=== PATIENT | male | born 1950 | race Caucasian/White ===

== ENCOUNTER 2019-06-24 13:18 | Inpatient (IN) ==
[2019-06-24] MEDS ORDERED: 0.9 % Sodium Chloride 1,000 ML IVC ONE (14:00)
[2019-06-24] MEDS ORDERED: *HR* Promethazine 25 MG/ML VIAL IVP ONE (14:08)
[2019-06-24 14:56] LABS: Eosinophils # 0.1 K/mcL (0.0-0.6); Eosinophils % 1.6 %; Hematocrit 43.1 % (37.5-50.1); Hemoglobin 14.8 g/dL (12.9-16.9); Immature Granulocytes % 0.3 % (0-4); Lymphocytes # 0.3 K/mcL (0.6-4.6); Lymphocytes % 8.4 %; Mean Corpuscular HGB Conc 34.3 g/dL (31.6-35.5); Mean Corpuscular Hemoglobin 30.1 pg (28.0-33.3); Mean Corpuscular Volume 87.8 fL (83.0-100.0); Mean Platelet Volume 10.6 fL (9.4-12.4); Neutrophils # 2.8 K/mcL (1.6-8.9); Platelet Count 107 K/mcL (140-400); Red Blood Count 4.91 M/mcL (4.19-5.50); Segmented Neutrophils % 88.7 %; White Blood Count 3.1 K/mcL (4.3-11.1)
[2019-06-24 15:25] LABS: Alanine Aminotransferase 16 Units/L (7-52); Albumin 3.8 g/dL (3.5-5.7); Albumin/Globulin Ratio 1.5 (1.1-2.2); Alkaline Phosphatase 100 Units/L (34-104); Aspartate Amino Transferase 15 Units/L (13-39); BUN/Creatinine Ratio 21 (6-26); Bilirubin,Total 1.3 mg/dL (0.3-1.0); Blood Urea Nitrogen 24 mg/dL (8-23); Calcium 8.9 mg/dL (8.6-10.3); Carbon Dioxide 27 mEq/L (23-29); Chloride 94 mEq/L (98-107); Globulin 2.5 g/dL (2.4-3.5); Glucose 94 mg/dL (70-105); Lactate Dehydrogenase 226 Units/L (140-271); Magnesium 1.6 mg/dL (1.6-2.6); Osmolality,Calculated 274 (280-300); Phosphorous 3.1 mg/dL (2.7-4.5); Potassium 4.3 mEq/L (3.5-5.1); Sodium 130 mEq/L (136-145); Total Protein 6.3 g/dL (6.4-8.9); Troponin I < 0.03 ng/mL (< 0.04); Uric Acid 6.6 mg/dL (2.3-7.6); eGFR For African Americans > 60 (> 60); eGFR For Non-African Americans > 60 (> 60)
[2019-06-24] MEDS ORDERED: Ondansetron 4 MG/2 ML VIAL IVP STA (16:55)
[2019-06-24] MEDS ORDERED: Metoclopramide 10 MG/2 ML VIAL IVP STA (16:56)
[2019-06-24] MEDS ORDERED: 0.9 % Sodium Chloride 1,000 ML IVC STA (16:57)
[2019-06-24] MEDS ORDERED: *HR* HYDROmorphone 2 MG TABLET PO STA (18:43)
[2019-06-24] MEDS ORDERED: Piperacillin/Tazobactam 3.375 GM in 0.9 % Sodium Chloride Mini Bag 100 ML IVPB ONE (19:48)
[2019-06-24] MEDS ORDERED: Naloxone 0.4 MG/ML INJ IVP PRN (19:51)
[2019-06-24] MEDS ORDERED: Ipratropium/Albuterol Neb 3 ML IH PRN (19:59)
[2019-06-24] MEDS ORDERED: 0.9 % Sodium Chloride 1,000 ML IVC SCH (20:00)
[2019-06-24 21:27] LABS: Bilirubin,Urine Negative (Negative); Blood,Urine Negative (Negative); Clarity,Urine Clear (Clear); Color,Urine Yellow (Yellow); Glucose,Urine (UA) Normal (Normal); Ketones,Urine Negative (Negative); Leukocyte Esterase,Urine Negative (Negative); Nitrite,Urine Negative (Negative); Protein,Urine Trace mg/dL (Neg-Trace); Urobilinogen,Urine Normal (Normal)
[2019-06-24] MEDS: Benzonatate 100 MG CAPSULE PO SCH (22:06)
[2019-06-24] MEDS: *HR* Heparin 5,000 UNIT/ML VIAL SQ SCH (22:06)
[2019-06-25] MEDS: *HR* Heparin 5,000 UNIT/ML VIAL SQ SCH (05:02)
[2019-06-25 08:32] LABS: INR 1.3; Prothrombin Time 15.2 Seconds (9.4-12.1)
[2019-06-25 08:34] LABS: Activated Partial Thrombo Time 27.6 Seconds (26.0-36.0)
[2019-06-25 08:39] LABS: Eosinophils % 1.8 %; Monocytes % 1.4 %; Red Cell Distribution Width 13.1 % (11.5-14.5)
[2019-06-25 08:41] LABS: Hematocrit 35.6 % (37.5-50.1); Hemoglobin 12.3 g/dL (12.9-16.9); Immature Granulocytes % 0.9 % (0-4); Lymphocytes # 0.3 K/mcL (0.6-4.6); Lymphocytes % 13.6 %; Mean Corpuscular HGB Conc 34.6 g/dL (31.6-35.5); Mean Corpuscular Hemoglobin 30.1 pg (28.0-33.3); Mean Platelet Volume 10.7 fL (9.4-12.4); Neutrophils # 1.8 K/mcL (1.6-8.9); Red Blood Count 4.09 M/mcL (4.19-5.50); Segmented Neutrophils % 82.3 %; White Blood Count 2.2 K/mcL (4.3-11.1)
[2019-06-25] MEDS: Benzonatate 100 MG CAPSULE PO SCH ×3 (08:51→20:05)
[2019-06-25] MEDS: Folic Acid 1 MG TABLET PO SCH (08:52)
[2019-06-25] MEDS: Ondansetron 4 MG/2 ML VIAL IVP PRN ×2 (08:52→20:09)
[2019-06-25 08:57] LABS: Platelet Count 84 K/mcL (140-400)
[2019-06-25 09:00] LABS: Platelet Estimate Decreased (Normal)
[2019-06-25 09:01] LABS: Alanine Aminotransferase 11 Units/L (7-52); Albumin 3.1 g/dL (3.5-5.7); Albumin/Globulin Ratio 1.7 (1.1-2.2); Alkaline Phosphatase 81 Units/L (34-104); Aspartate Amino Transferase 14 Units/L (13-39); Bilirubin,Total 0.9 mg/dL (0.3-1.0); Blood Urea Nitrogen 18 mg/dL (8-23); Carbon Dioxide 24 mEq/L (23-29); Chloride 100 mEq/L (98-107); Globulin 1.8 g/dL (2.4-3.5); Glucose 90 mg/dL (70-105); Osmolality,Calculated 275 (280-300); Potassium 4.4 mEq/L (3.5-5.1); Sodium 132 mEq/L (136-145); Total Protein 4.9 g/dL (6.4-8.9)
[2019-06-25 09:33] LABS: BUN/Creatinine Ratio 19 (6-26); eGFR For African Americans > 60 (> 60); eGFR For Non-African Americans > 60 (> 60)
[2019-06-25] MEDS ORDERED: Piperacillin/Tazobactam 3.375 GM in 0.9 % Sodium Chloride Mini Bag 100 ML IVPB SCH (12:00)
[2019-06-25] MEDS: 0.9 % Sodium Chloride 1,000 ML IVC SCH ×2 (12:10→23:32)
[2019-06-25] MEDS: Morphine Sulfate ER (12 HR) 15 MG TABLET.ER PO SCH (20:05)
[2019-06-25] MEDS: Piperacillin/Tazobactam 3.375 GM in 0.9 % Sodium Chloride Mini Bag 100 ML IVPB SCH (20:06)
[2019-06-26] MEDS: Piperacillin/Tazobactam 3.375 GM in 0.9 % Sodium Chloride Mini Bag 100 ML IVPB SCH ×3 (03:16→20:18)
[2019-06-26 05:27] LABS: Basophils % 0.7 %; Mean Platelet Volume 10.6 fL (9.4-12.4)
[2019-06-26 05:28] LABS: Eosinophils % 2.2 %; Hematocrit 34.3 % (37.5-50.1); Hemoglobin 11.7 g/dL (12.9-16.9); Immature Granulocytes % 0.7 % (0-4); Lymphocytes # 0.3 K/mcL (0.6-4.6); Lymphocytes % 21.9 %; Mean Corpuscular HGB Conc 34.1 g/dL (31.6-35.5); Mean Corpuscular Hemoglobin 30.2 pg (28.0-33.3); Mean Corpuscular Volume 88.4 fL (83.0-100.0); Monocytes # 0.1 K/mcL (0.0-1.3); Monocytes % 4.4 %; Platelet Count 77 K/mcL (140-400); Red Blood Count 3.88 M/mcL (4.19-5.50); Red Cell Distribution Width 13.1 % (11.5-14.5); Segmented Neutrophils % 70.1 %; White Blood Count 1.4 K/mcL (4.3-11.1)
[2019-06-26 05:52] LABS: BUN/Creatinine Ratio 14 (6-26); Blood Urea Nitrogen 14 mg/dL (8-23); Calcium 8.1 mg/dL (8.6-10.3); Carbon Dioxide 24 mEq/L (23-29); Chloride 99 mEq/L (98-107); Glucose 95 mg/dL (70-105); Osmolality,Calculated 272 (280-300); Potassium 4.5 mEq/L (3.5-5.1); Sodium 131 mEq/L (136-145); eGFR For African Americans > 60 (> 60); eGFR For Non-African Americans > 60 (> 60)
[2019-06-26] MEDS: Folic Acid 1 MG TABLET PO SCH (08:13)
[2019-06-26] MEDS: Fluticasone Propionate Nasal 50 MCG/SPRAY BOTTLE NS SCH (08:13)
[2019-06-26] MEDS: Benzonatate 100 MG CAPSULE PO SCH ×3 (08:13→20:18)
[2019-06-26] MEDS: Loratadine 10 MG TABLET PO SCH (08:13)
[2019-06-26] MEDS: Morphine Sulfate ER (12 HR) 15 MG TABLET.ER PO SCH ×2 (08:13→20:18)
[2019-06-26] MEDS: 0.9 % Sodium Chloride 1,000 ML IVC SCH (14:05)
[2019-06-26] MEDS: Ondansetron 4 MG/2 ML VIAL IVP PRN (15:36)
[2019-06-26] MEDS: Ondansetron 4 MG/2 ML VIAL IVP SCH (16:31)
[2019-06-27] MEDS: Ondansetron 4 MG/2 ML VIAL IVP SCH ×2 (00:11→08:42)
[2019-06-27] MEDS: 0.9 % Sodium Chloride 1,000 ML IVC SCH (00:12)
[2019-06-27] MEDS: Piperacillin/Tazobactam 3.375 GM in 0.9 % Sodium Chloride Mini Bag 100 ML IVPB SCH ×2 (04:48→13:40)
[2019-06-27 05:25] LABS: Basophils % 0.8 %
[2019-06-27 05:27] LABS: Eosinophils # 0.1 K/mcL (0.0-0.6); Hematocrit 35.5 % (37.5-50.1); Hemoglobin 12.3 g/dL (12.9-16.9); Immature Granulocytes % 0.8 % (0-4); Lymphocytes # 0.3 K/mcL (0.6-4.6); Lymphocytes % 23.1 %; Mean Corpuscular HGB Conc 34.6 g/dL (31.6-35.5); Mean Corpuscular Hemoglobin 30.1 pg (28.0-33.3); Mean Corpuscular Volume 86.8 fL (83.0-100.0); Mean Platelet Volume 10.7 fL (9.4-12.4); Monocytes # 0.1 K/mcL (0.0-1.3); Monocytes % 8.3 %; Red Blood Count 4.09 M/mcL (4.19-5.50); Red Cell Distribution Width 13.1 % (11.5-14.5); White Blood Count 1.2 K/mcL (4.3-11.1)
[2019-06-27 05:29] LABS: Neutrophils # 0.7 K/mcL (1.6-8.9); Platelet Count 67 K/mcL (140-400)
[2019-06-27 05:41] LABS: BUN/Creatinine Ratio 14 (6-26); Blood Urea Nitrogen 14 mg/dL (8-23); Calcium 8.2 mg/dL (8.6-10.3); Carbon Dioxide 23 mEq/L (23-29); Chloride 99 mEq/L (98-107); Glucose 93 mg/dL (70-105); Osmolality,Calculated 272 (280-300); Potassium 4.3 mEq/L (3.5-5.1); Sodium 131 mEq/L (136-145); eGFR For African Americans > 60 (> 60); eGFR For Non-African Americans > 60 (> 60)
[2019-06-27] MEDS: Loratadine 10 MG TABLET PO SCH (08:42)
[2019-06-27] MEDS: Morphine Sulfate ER (12 HR) 15 MG TABLET.ER PO SCH (08:42)
[2019-06-27] MEDS: Benzonatate 100 MG CAPSULE PO SCH ×2 (08:42→16:13)
[2019-06-27] MEDS: Folic Acid 1 MG TABLET PO SCH (08:42)
[2019-06-27] MEDS: Fluticasone Propionate Nasal 50 MCG/SPRAY BOTTLE NS SCH (08:43)
[2019-06-27] MEDS ORDERED: Ondansetron ODT 4 MG TAB.RAPDIS SL PRN (09:17)
[2019-06-27 14:51] LABS: Hematocrit 34.8 % (37.5-50.1); Immature Granulocytes % 0.9 % (0-4); Red Cell Distribution Width 13.1 % (11.5-14.5)
[2019-06-27 14:52] LABS: Basophils % 0.9 %; Eosinophils # 0.1 K/mcL (0.0-0.6); Eosinophils % 4.4 %; Hemoglobin 11.7 g/dL (12.9-16.9); Lymphocytes # 0.3 K/mcL (0.6-4.6); Lymphocytes % 25.7 %; Mean Corpuscular HGB Conc 33.6 g/dL (31.6-35.5); Mean Corpuscular Hemoglobin 29.8 pg (28.0-33.3); Mean Corpuscular Volume 88.8 fL (83.0-100.0); Mean Platelet Volume 10.3 fL (9.4-12.4); Monocytes # 0.1 K/mcL (0.0-1.3); Monocytes % 8.8 %; Neutrophils # 0.7 K/mcL (1.6-8.9); Red Blood Count 3.92 M/mcL (4.19-5.50); Segmented Neutrophils % 59.3 %; White Blood Count 1.1 K/mcL (4.3-11.1)
[2019-06-27 15:14] LABS: Platelet Count 60 K/mcL (140-400); Platelet Estimate Decreased (Normal)
[2019-06-27 15:51] VITALS: BP 102/65
[2019-06-27] MEDS ORDERED: Aminoglycoside Consult 1 EACH MC ONE (18:07)
== END 2019-06-27 18:08 | disposition home or self-care (01) | DRG 391 ==
LOC: 3BNU 13:18 → EMEROOARM 13:18 → 3BNU 20:55
PROVIDERS: ADMIT Internal Medicine; ATTEND Internal Medicine

== ENCOUNTER 2019-08-13 01:04 | Observation (INO) ==
[2019-08-13] MEDS ORDERED: Albuterol 2.5 MG/3 ML NEBULIZER IH ONE (01:49)
[2019-08-13] MEDS ORDERED: Ipratropium/Albuterol Neb 3 ML IH ONE (01:49)
[2019-08-13] MEDS ORDERED: Isovue-370 500 ML BOTTLE IVP ONE (01:49)
[2019-08-13 02:20] LABS: Hematocrit 24.5 % (37.5-50.1); Hemoglobin 8.2 g/dL (12.9-16.9); Mean Corpuscular HGB Conc 33.5 g/dL (31.6-35.5); Mean Corpuscular Hemoglobin 30.3 pg (28.0-33.3); Mean Corpuscular Volume 90.4 fL (83.0-100.0); Mean Platelet Volume 10.5 fL (9.4-12.4); Platelet Count 198 K/mcL (140-400); Red Blood Count 2.71 M/mcL (4.19-5.50); Red Cell Distribution Width 17.7 % (11.5-14.5); White Blood Count 7.6 K/mcL (4.3-11.1)
[2019-08-13 02:27] LABS: INR 1.1
[2019-08-13 02:29] LABS: Activated Partial Thrombo Time 29.5 Seconds (26.0-36.0)
[2019-08-13 02:40] LABS: Lymphocytes # 0.6 K/mcL (0.6-4.6)
[2019-08-13 02:41] LABS: Anisocytosis 1+ (Not Present); Platelet Estimate Normal (Normal)
[2019-08-13 02:42] LABS: Alanine Aminotransferase 20 Units/L (7-52); Albumin 3.8 g/dL (3.5-5.7); Albumin/Globulin Ratio 1.5 (1.1-2.2); Alkaline Phosphatase 136 Units/L (34-104); Aspartate Amino Transferase 17 Units/L (13-39); BUN/Creatinine Ratio 31 (6-26); Bilirubin,Direct 0.2 mg/dL (0.0-0.2); Bilirubin,Indirect 0.5 mg/dL (0.0-1.0); Bilirubin,Total 0.7 mg/dL (0.3-1.0); Blood Urea Nitrogen 26 mg/dL (8-23); Calcium 8.7 mg/dL (8.6-10.3); Carbon Dioxide 22 mEq/L (23-29); Chloride 98 mEq/L (98-107); Globulin 2.5 g/dL (2.4-3.5); Glucose 86 mg/dL (70-105); Osmolality,Calculated 276 (280-300); Potassium 4.9 mEq/L (3.5-5.1); Sodium 131 mEq/L (136-145); Total Protein 6.3 g/dL (6.4-8.9); Troponin I < 0.03 ng/mL (< 0.04); eGFR For African Americans > 60 (> 60); eGFR For Non-African Americans > 60 (> 60)
[2019-08-13] MEDS ORDERED: Ondansetron 4 MG/2 ML VIAL IVP ONE ×2 (03:46→08:33)
[2019-08-13] MEDS ORDERED: Morphine Sulfate 2 MG/ML SYRINGE IVP ONE (04:03)
[2019-08-13] MEDS ORDERED: 0.9 % Sodium Chloride 1,000 ML IV ONE (04:20)
[2019-08-13] MEDS ORDERED: Ondansetron 4 MG/2 ML VIAL IVP PRN (05:02)
[2019-08-13] MEDS ORDERED: Naloxone 0.4 MG/ML INJ IVP PRN (05:02)
[2019-08-13] MEDS ORDERED: 0.9 % Sodium Chloride 1,000 ML IVC SCH (05:15)
[2019-08-13 05:48] LABS: Bilirubin,Urine Negative (Negative); Blood,Urine Negative (Negative); Clarity,Urine Clear (Clear); Color,Urine Yellow (Yellow); Glucose,Urine (UA) Normal (Normal); Ketones,Urine Negative (Negative); Leukocyte Esterase,Urine Negative (Negative); Nitrite,Urine Negative (Negative); PH,Urine 7.5 pH Units (5.0-8.0); Protein,Urine 30 mg/dL (Neg-Trace); Specific Gravity,Urine 1.019 (1.010-1.025); Urobilinogen,Urine Normal (Normal)
[2019-08-13 05:50] LABS: Bacteria,Urine None Seen per hpf (None-Few); Hyaline Casts,Urine None Seen per lpf (None-Few); RBC,Urine 0-3 per hpf (0-3); Squamous Epithelial Cell,Urine Many per lpf (None-Few)
[2019-08-13] MEDS ORDERED: *HR* OxyCODONE/APAP 5/325 TABLET PO PRN (06:10)
[2019-08-13] MEDS ORDERED: Fluticasone Propionate Nasal 50 MCG/SPRAY BOTTLE NS PRN (06:10)
[2019-08-13] MEDS ORDERED: Aspirin 325 MG TABLET PO ONE (06:22)
[2019-08-13 06:48] LABS: % Iron Saturation 95 % (20-55); Iron 271 mcg/dL (65-175); Transferrin 204 mg/dL (203-362)
[2019-08-13 07:06] LABS: Ferritin 848 ng/mL (20-250)
[2019-08-13] MEDS ORDERED: dexAMETHasone 4 MG TABLET PO PRN (09:00)
[2019-08-13] MEDS: Simethicone 80 MG TAB.CHEW PO SCH ×4 (09:45→21:01)
[2019-08-13] MEDS: Morphine Sulfate ER (12 HR) 15 MG TABLET.ER PO SCH ×2 (09:46→21:02)
[2019-08-13] MEDS: Folic Acid 1 MG TABLET PO SCH (09:46)
[2019-08-13] MEDS: Benzonatate 100 MG CAPSULE PO SCH ×3 (09:46→21:01)
[2019-08-13] MEDS ORDERED: Ondansetron ODT 4 MG TAB.RAPDIS PO PRN (11:33)
[2019-08-13] MEDS ORDERED: Azithromycin 500 MG in D5% in Water 250 ML IVPB SCH (12:00)
[2019-08-13] MEDS ORDERED: *HR* LORazepam 2 MG/ML VIAL IVP ONE (22:30)
[2019-08-14 05:04] LABS: Basophils % 0.4 %; Eosinophils # 0.1 K/mcL (0.0-0.6); Eosinophils % 2.2 %; Hematocrit 22.5 % (37.5-50.1); Hemoglobin 7.3 g/dL (12.9-16.9); Immature Granulocytes % 0.7 % (0-4); Lymphocytes # 0.4 K/mcL (0.6-4.6); Mean Corpuscular HGB Conc 32.4 g/dL (31.6-35.5); Mean Corpuscular Hemoglobin 30.9 pg (28.0-33.3); Mean Corpuscular Volume 95.3 fL (83.0-100.0); Mean Platelet Volume 10.5 fL (9.4-12.4); Monocytes # 0.1 K/mcL (0.0-1.3); Monocytes % 2.9 %; Platelet Count 132 K/mcL (140-400); Red Blood Count 2.36 M/mcL (4.19-5.50); Red Cell Distribution Width 17.7 % (11.5-14.5); Segmented Neutrophils % 80.8 %
[2019-08-14 05:13] LABS: Neutrophils # 2.3 K/mcL (1.6-8.9); White Blood Count 2.8 K/mcL (4.3-11.1)
[2019-08-14 05:24] LABS: BUN/Creatinine Ratio 25 (6-26); Blood Urea Nitrogen 19 mg/dL (8-23); Calcium 8.5 mg/dL (8.6-10.3); Carbon Dioxide 23 mEq/L (23-29); Chloride 103 mEq/L (98-107); Glucose 122 mg/dL (70-105); Osmolality,Calculated 280 (280-300); Potassium 5.3 mEq/L (3.5-5.1); Sodium 133 mEq/L (136-145); eGFR For African Americans > 60 (> 60); eGFR For Non-African Americans > 60 (> 60)
[2019-08-14 06:09] LABS: Platelet Estimate Normal (Normal)
[2019-08-14] MEDS ORDERED: 0.9 % Sodium Chloride 250 ML ONE (09:26)
[2019-08-14] MEDS: Folic Acid 1 MG TABLET PO SCH (10:03)
[2019-08-14] MEDS: Benzonatate 100 MG CAPSULE PO SCH ×2 (10:04→13:53)
[2019-08-14] MEDS: Simethicone 80 MG TAB.CHEW PO SCH ×3 (10:04→17:13)
[2019-08-14] MEDS: Morphine Sulfate ER (12 HR) 15 MG TABLET.ER PO SCH (10:04)
[2019-08-14] MEDS ORDERED: Azithromycin 250 MG TABLET PO SCH (13:00)
[2019-08-14 14:17] VITALS: BP 101/66
== END 2019-08-14 17:35 | disposition home or self-care (01) ==
LOC: 3ANU 01:04 → EMEROOARM 01:04 → SUATTDRO 04:37 → 3ANU 05:01
PROVIDERS: ADMIT Internal Medicine; ATTEND Internal Medicine

== ENCOUNTER 2019-11-14 09:43 | Inpatient (IN) ==
[2019-11-14] MEDS ORDERED: 0.9 % Sodium Chloride 500 ML IVC STA (09:53)
[2019-11-14] MEDS ORDERED: Ondansetron 4 MG/2 ML VIAL IVP ONE (10:20)
[2019-11-14 10:34] LABS: Basophils % 0.1 %; Eosinophils # 0.1 K/mcL (0.0-0.6); Eosinophils % 0.8 %; Hematocrit 19.2 % (37.5-50.1); Hemoglobin 6.5 g/dL (12.9-16.9); Immature Granulocytes % 0.9 % (0-4); Lymphocytes # 0.5 K/mcL (0.6-4.6); Lymphocytes % 6.3 %; Mean Corpuscular HGB Conc 33.9 g/dL (31.6-35.5); Mean Corpuscular Hemoglobin 32.3 pg (28.0-33.3); Mean Corpuscular Volume 95.5 fL (83.0-100.0); Mean Platelet Volume 10.8 fL (9.4-12.4); Monocytes # 1.3 K/mcL (0.0-1.3); Monocytes % 17.2 %; Neutrophils # 5.6 K/mcL (1.6-8.9); Platelet Count 152 K/mcL (140-400); Red Blood Count 2.01 M/mcL (4.19-5.50); Red Cell Distribution Width 18.8 % (11.5-14.5); Segmented Neutrophils % 74.7 %; White Blood Count 7.6 K/mcL (4.3-11.1)
[2019-11-14 10:57] LABS: Bilirubin,Urine Negative (Negative); Blood,Urine Negative (Negative); Clarity,Urine Clear (Clear); Color,Urine Yellow (Yellow); Glucose,Urine (UA) Normal (Normal); Ketones,Urine Negative (Negative); Leukocyte Esterase,Urine Negative (Negative); Nitrite,Urine Negative (Negative); PH,Urine 7.5 pH Units (5.0-8.0); Protein,Urine 30 mg/dL (Neg-Trace); Sodium, Urine 50.4 mEq/L; Specific Gravity,Urine 1.013 (1.010-1.025); Urobilinogen,Urine Normal (Normal)
[2019-11-14 10:59] LABS: Bacteria,Urine None Seen per hpf (None-Few); Hyaline Casts,Urine None Seen per lpf (None-Few); RBC,Urine 0-3 per hpf (0-3); Squamous Epithelial Cell,Urine Moderate per lpf (None-Few); WBC,Urine 0-3 per hpf (0-3)
[2019-11-14 11:00] LABS: Alanine Aminotransferase 17 Units/L (7-52); Albumin 3.6 g/dL (3.5-5.7); Albumin/Globulin Ratio 1.2 (1.1-2.2); Alkaline Phosphatase 64 Units/L (34-104); Aspartate Amino Transferase 20 Units/L (13-39); BUN/Creatinine Ratio 32 (6-26); Bilirubin,Total 0.6 mg/dL (0.3-1.0); Blood Urea Nitrogen 35 mg/dL (8-23); Calcium 8.3 mg/dL (8.6-10.3); Carbon Dioxide 22 mEq/L (23-29); Chloride 86 mEq/L (98-107); Glucose 109 mg/dL (70-105); Osmolality,Calculated 251 (280-300); Potassium 6.2 mEq/L (3.5-5.1); Sodium 116 mEq/L (136-145); Total Protein 6.6 g/dL (6.4-8.9); Troponin I < 0.03 ng/mL (< 0.04); eGFR For African Americans > 60 (> 60); eGFR For Non-African Americans > 60 (> 60)
[2019-11-14] MEDS ORDERED: Ondansetron 4 MG/2 ML VIAL IVP PRN (12:06)
[2019-11-14] MEDS ORDERED: Naloxone 0.4 MG/ML INJ IVP PRN (12:06)
[2019-11-14] MEDS ORDERED: Ipratropium/Albuterol Neb 3 ML IH PRN (12:26)
[2019-11-14] MEDS ORDERED: 0.9 % Sodium Chloride 1,000 ML IVC SCH (13:30)
[2019-11-14] MEDS ORDERED: *HR* LORazepam 1 MG TABLET GTUBE PRN (14:29)
[2019-11-14] MEDS ORDERED: *HR* OxyCODONE/APAP 5/325 TABLET GTUBE PRN (14:29)
[2019-11-14 14:47] LABS: Hematocrit 20.4 % (37.5-50.1); Hemoglobin 7.1 g/dL (12.9-16.9)
[2019-11-14 15:09] LABS: BUN/Creatinine Ratio 29 (6-26); Blood Urea Nitrogen 31 mg/dL (8-23); Carbon Dioxide 22 mEq/L (23-29); Chloride 89 mEq/L (98-107); Glucose 97 mg/dL (70-105); Osmolality,Calculated 252 (280-300); Potassium 5.9 mEq/L (3.5-5.1); Sodium 118 mEq/L (136-145); eGFR For African Americans > 60 (> 60); eGFR For Non-African Americans > 60 (> 60)
[2019-11-14] MEDS ORDERED: 0.9 % Sodium Chloride 250 ML ONE (15:40)
[2019-11-14] MEDS: 0.9 % Sodium Chloride 1,000 ML IVC SCH (18:09)
[2019-11-14 20:51] LABS: Hematocrit 24.2 % (37.5-50.1); Hemoglobin 8.2 g/dL (12.9-16.9)
[2019-11-14 21:10] LABS: BUN/Creatinine Ratio 29 (6-26); Blood Urea Nitrogen 31 mg/dL (8-23); Calcium 7.6 mg/dL (8.6-10.3); Carbon Dioxide 21 mEq/L (23-29); Chloride 92 mEq/L (98-107); Glucose 131 mg/dL (70-105); Osmolality,Calculated 260 (280-300); Potassium 5.3 mEq/L (3.5-5.1); Sodium 121 mEq/L (136-145); eGFR For African Americans > 60 (> 60); eGFR For Non-African Americans > 60 (> 60)
[2019-11-14] MEDS ORDERED: Morphine Sulfate ER (12 HR) 15 MG TABLET.ER PO PRN (22:39)
[2019-11-14] MEDS ORDERED: Fluticasone Propionate Nasal 50 MCG/SPRAY BOTTLE NS PRN (22:39)
[2019-11-15] MEDS ORDERED: FIBER PO SCH
[2019-11-15] MEDS ORDERED: LACTOSE REDUCED FOOD PO SCH
[2019-11-15] MEDS: 0.9 % Sodium Chloride 1,000 ML IVC SCH ×2 (01:32→14:25)
[2019-11-15] MEDS ORDERED: Acetaminophen 325 MG TABLET PO ONE (03:25)
[2019-11-15 03:47] LABS: Basophils % 0.2 %; Eosinophils % 0.7 %; Hematocrit 24.1 % (37.5-50.1); Hemoglobin 8.3 g/dL (12.9-16.9); Lymphocytes # 0.5 K/mcL (0.6-4.6); Lymphocytes % 8.2 %; Mean Corpuscular HGB Conc 34.4 g/dL (31.6-35.5); Mean Corpuscular Hemoglobin 31.2 pg (28.0-33.3); Mean Corpuscular Volume 90.6 fL (83.0-100.0); Mean Platelet Volume 10.4 fL (9.4-12.4); Monocytes # 0.9 K/mcL (0.0-1.3); Monocytes % 15.8 %; Neutrophils # 4.3 K/mcL (1.6-8.9); Platelet Count 151 K/mcL (140-400); Red Blood Count 2.66 M/mcL (4.19-5.50); Red Cell Distribution Width 17.8 % (11.5-14.5); Segmented Neutrophils % 74.1 %; White Blood Count 5.8 K/mcL (4.3-11.1)
[2019-11-15 04:07] LABS: BUN/Creatinine Ratio 29 (6-26); Blood Urea Nitrogen 28 mg/dL (8-23); Calcium 7.7 mg/dL (8.6-10.3); Carbon Dioxide 21 mEq/L (23-29); Chloride 93 mEq/L (98-107); Glucose 102 mg/dL (70-105); Osmolality,Calculated 258 (280-300); Potassium 5.7 mEq/L (3.5-5.1); Sodium 121 mEq/L (136-145); eGFR For African Americans > 60 (> 60); eGFR For Non-African Americans > 60 (> 60)
[2019-11-15] MEDS ORDERED: *HR* Promethazine 25 MG/ML VIAL IVP PRN (07:26)
[2019-11-15] MEDS: Folic Acid 1 MG TABLET GTUBE SCH (08:01)
[2019-11-15] MEDS ORDERED: Morphine Sulfate ER (12 HR) 15 MG TABLET.ER PO PRN (08:13)
[2019-11-15] MEDS ORDERED: *HR* OxyCODONE/APAP 5/325 TABLET GTUBE PRN (08:14)
[2019-11-15] MEDS ORDERED: dexAMETHasone 4 MG TABLET PO SCH (09:00)
[2019-11-15] MEDS ORDERED: E-Z-HD (BARIUM SULF) SUSPENSION PO ONE (10:55)
[2019-11-15] MEDS ORDERED: E-Z-PAQUE (BARIUM SULF) SUSP 1 BOTTLE PO ONE (10:55)
[2019-11-15 12:05] LABS: Basophils % 0.2 %; Eosinophils % 0.6 %; Hematocrit 25.2 % (37.5-50.1); Hemoglobin 8.6 g/dL (12.9-16.9); Lymphocytes # 0.4 K/mcL (0.6-4.6); Lymphocytes % 6.5 %; Mean Corpuscular HGB Conc 34.1 g/dL (31.6-35.5); Mean Corpuscular Hemoglobin 31.5 pg (28.0-33.3); Mean Corpuscular Volume 92.3 fL (83.0-100.0); Mean Platelet Volume 10.5 fL (9.4-12.4); Monocytes % 15.4 %; Neutrophils # 4.7 K/mcL (1.6-8.9); Platelet Count 162 K/mcL (140-400); Red Blood Count 2.73 M/mcL (4.19-5.50); Segmented Neutrophils % 76.3 %; White Blood Count 6.2 K/mcL (4.3-11.1)
[2019-11-15 12:21] LABS: BUN/Creatinine Ratio 28 (6-26); Blood Urea Nitrogen 25 mg/dL (8-23); Calcium 7.8 mg/dL (8.6-10.3); Carbon Dioxide 21 mEq/L (23-29); Chloride 94 mEq/L (98-107); Glucose 95 mg/dL (70-105); Osmolality,Calculated 260 (280-300); Potassium 5.5 mEq/L (3.5-5.1); Sodium 123 mEq/L (136-145); eGFR For African Americans > 60 (> 60); eGFR For Non-African Americans > 60 (> 60)
[2019-11-15] MEDS ORDERED: 0.9 % Sodium Chloride 1,000 ML IVC SCH (14:56)
[2019-11-15] MEDS: Piperacillin/Tazobactam 3.375 GM in 0.9 % Sodium Chloride Mini Bag 100 ML IVPB SCH (17:25)
[2019-11-15] MEDS ORDERED: *HR* LORazepam 1 MG TABLET GTUBE PRN (19:08)
[2019-11-16] MEDS: Piperacillin/Tazobactam 3.375 GM in 0.9 % Sodium Chloride Mini Bag 100 ML IVPB SCH ×3 (00:19→16:45)
[2019-11-16 05:42] LABS: BUN/Creatinine Ratio 22 (6-26); Blood Urea Nitrogen 20 mg/dL (8-23); Calcium 7.5 mg/dL (8.6-10.3); Carbon Dioxide 20 mEq/L (23-29); Chloride 95 mEq/L (98-107); Glucose 105 mg/dL (70-105); Magnesium 1.7 mg/dL (1.6-2.6); Osmolality,Calculated 259 (280-300); Sodium 123 mEq/L (136-145); eGFR For African Americans > 60 (> 60); eGFR For Non-African Americans > 60 (> 60)
[2019-11-16 06:20] LABS: Basophils % 0.2 %; Eosinophils % 0.7 %; Immature Granulocytes % 1.2 % (0-4); Lymphocytes # 0.3 K/mcL (0.6-4.6); Lymphocytes % 5.6 %; Mean Corpuscular HGB Conc 33.3 g/dL (31.6-35.5); Mean Platelet Volume 10.3 fL (9.4-12.4); Monocytes # 0.5 K/mcL (0.0-1.3); Monocytes % 8.4 %; Platelet Count 165 K/mcL (140-400); Red Blood Count 2.58 M/mcL (4.19-5.50); Red Cell Distribution Width 17.7 % (11.5-14.5); Segmented Neutrophils % 83.9 %; White Blood Count 5.9 K/mcL (4.3-11.1)
[2019-11-16] MEDS: Folic Acid 1 MG TABLET GTUBE SCH (08:24)
[2019-11-17] MEDS: Piperacillin/Tazobactam 3.375 GM in 0.9 % Sodium Chloride Mini Bag 100 ML IVPB SCH ×3 (00:22→17:34)
[2019-11-17 06:32] LABS: Basophils % 0.3 %; Eosinophils # 0.1 K/mcL (0.0-0.6); Eosinophils % 1.3 %; Hematocrit 29.5 % (37.5-50.1); Immature Granulocytes % 1.4 % (0-4); Immature Platelets 6.3 % (1.1-6.1); Lymphocytes # 0.5 K/mcL (0.6-4.6); Mean Corpuscular HGB Conc 30.5 g/dL (31.6-35.5); Mean Corpuscular Hemoglobin 30.9 pg (28.0-33.3); Mean Corpuscular Volume 101.4 fL (83.0-100.0); Monocytes # 0.9 K/mcL (0.0-1.3); Monocytes % 14.3 %; Neutrophils # 4.8 K/mcL (1.6-8.9); Platelet Count 174 K/mcL (140-400); Red Blood Count 2.91 M/mcL (4.19-5.50); Red Cell Distribution Width 17.9 % (11.5-14.5); Segmented Neutrophils % 74.7 %; White Blood Count 6.4 K/mcL (4.3-11.1)
[2019-11-17 06:55] LABS: BUN/Creatinine Ratio 19 (6-26); Blood Urea Nitrogen 17 mg/dL (8-23); Calcium 7.7 mg/dL (8.6-10.3); Carbon Dioxide 17 mEq/L (23-29); Chloride 95 mEq/L (98-107); Glucose 98 mg/dL (70-105); Magnesium 1.8 mg/dL (1.6-2.6); Osmolality,Calculated 256 (280-300); Platelet Estimate Normal (Normal); Sodium 122 mEq/L (136-145); eGFR For African Americans > 60 (> 60); eGFR For Non-African Americans > 60 (> 60)
[2019-11-17] MEDS: Folic Acid 1 MG TABLET GTUBE SCH (08:45)
[2019-11-18] MEDS: Piperacillin/Tazobactam 3.375 GM in 0.9 % Sodium Chloride Mini Bag 100 ML IVPB SCH ×4 (00:17→23:54)
[2019-11-18 05:09] LABS: BUN/Creatinine Ratio 24 (6-26); Blood Urea Nitrogen 20 mg/dL (8-23); Calcium 8.5 mg/dL (8.6-10.3); Carbon Dioxide 20 mEq/L (23-29); Chloride 95 mEq/L (98-107); Glucose 108 mg/dL (70-105); Osmolality,Calculated 265 (280-300); Potassium 4.6 mEq/L (3.5-5.1); Sodium 126 mEq/L (136-145); eGFR For African Americans > 60 (> 60); eGFR For Non-African Americans > 60 (> 60)
[2019-11-18] MEDS: Folic Acid 1 MG TABLET GTUBE SCH (08:40)
[2019-11-18] MEDS ORDERED: Piperacillin/Tazobactam 3.375 GM VIAL ONE (23:43)
[2019-11-19 04:48] LABS: BUN/Creatinine Ratio 30 (6-26); Blood Urea Nitrogen 24 mg/dL (8-23); Calcium 8.9 mg/dL (8.6-10.3); Carbon Dioxide 19 mEq/L (23-29); Chloride 94 mEq/L (98-107); Glucose 105 mg/dL (70-105); Osmolality,Calculated 266 (280-300); Potassium 4.6 mEq/L (3.5-5.1); Sodium 126 mEq/L (136-145); eGFR For African Americans > 60 (> 60); eGFR For Non-African Americans > 60 (> 60)
[2019-11-19] MEDS: Piperacillin/Tazobactam 3.375 GM in 0.9 % Sodium Chloride Mini Bag 100 ML IVPB SCH (08:31)
[2019-11-19] MEDS: Folic Acid 1 MG TABLET GTUBE SCH (08:31)
[2019-11-19] MEDS ORDERED: Sodium Bicarbonate 75 MEQ in 0.45 % Sodium Chloride 1,000 ML IVC SCH (22:30)
[2019-11-20 05:00] LABS: BUN/Creatinine Ratio 35 (6-26); Blood Urea Nitrogen 24 mg/dL (8-23); Calcium 8.8 mg/dL (8.6-10.3); Carbon Dioxide 22 mEq/L (23-29); Chloride 95 mEq/L (98-107); Glucose 96 mg/dL (70-105); Osmolality,Calculated 268 (280-300); Potassium 4.9 mEq/L (3.5-5.1); Sodium 127 mEq/L (136-145); eGFR For African Americans > 60 (> 60); eGFR For Non-African Americans > 60 (> 60)
[2019-11-20 05:17] LABS: Albumin 3.3 g/dL (3.5-5.7); BUN/Creatinine Ratio 33 (6-26); Blood Urea Nitrogen 23 mg/dL (8-23); Calcium 8.8 mg/dL (8.6-10.3); Carbon Dioxide 22 mEq/L (23-29); Chloride 95 mEq/L (98-107); Glucose 96 mg/dL (70-105); Magnesium 1.6 mg/dL (1.6-2.6); Osmolality,Calculated 268 (280-300); Phosphorous 4.9 mg/dL (2.7-4.5); Potassium 4.9 mEq/L (3.5-5.1); Sodium 127 mEq/L (136-145); Thyroid Stimulating Hormone 3.409 mcIU/mL (0.340-5.600); eGFR For African Americans > 60 (> 60); eGFR For Non-African Americans > 60 (> 60)
[2019-11-20] MEDS: Folic Acid 1 MG TABLET GTUBE SCH (09:29)
[2019-11-20 15:12] LABS: BUN/Creatinine Ratio 37 (6-26); Blood Urea Nitrogen 24 mg/dL (8-23); Calcium 8.7 mg/dL (8.6-10.3); Carbon Dioxide 24 mEq/L (23-29); Chloride 94 mEq/L (98-107); Glucose 134 mg/dL (70-105); Osmolality,Calculated 270 (280-300); Potassium 3.5 mEq/L (3.5-5.1); Sodium 127 mEq/L (136-145); eGFR For African Americans > 60 (> 60); eGFR For Non-African Americans > 60 (> 60)
[2019-11-20] MEDS ORDERED: Tolvaptan 15 MG TABLET PO ONE (15:39)
[2019-11-20 17:36] LABS: Sodium, Urine 70.4 mEq/L
[2019-11-21 04:23] LABS: BUN/Creatinine Ratio 32 (6-26); Blood Urea Nitrogen 22 mg/dL (8-23); Calcium 9.1 mg/dL (8.6-10.3); Carbon Dioxide 27 mEq/L (23-29); Chloride 98 mEq/L (98-107); Glucose 109 mg/dL (70-105); Osmolality,Calculated 280 (280-300); Potassium 3.7 mEq/L (3.5-5.1); Sodium 133 mEq/L (136-145); eGFR For African Americans > 60 (> 60); eGFR For Non-African Americans > 60 (> 60)
[2019-11-21] MEDS: Folic Acid 1 MG TABLET GTUBE SCH (08:50)
[2019-11-21 10:37] VITALS: BP 97/63
[2019-11-22] MEDS ORDERED: Tolvaptan 15 MG TABLET PO SCH (09:00)
== END 2019-11-21 14:15 | disposition home health service (06) | DRG 180 ==
LOC: 3ANU 09:43 → EMEROOARM 09:43 → SUATTDRO 12:08 → 3ANU 12:45
PROVIDERS: ADMIT Family Medicine; ATTEND Internal Medicine

== ENCOUNTER 2020-11-22 21:33 | Inpatient (IN) ==
[2020-11-22] MEDS ORDERED: Ondansetron 4 MG/2 ML VIAL IVP ONE (22:03)
[2020-11-22] MEDS ORDERED: 0.9 % Sodium Chloride 500 ML IVC ONE ×3 (22:03→23:23)
[2020-11-22 22:31] LABS: Basophils # 0.1 K/mcL (0.0-0.2); Basophils % 0.5 %; Eosinophils # 0.1 K/mcL (0.0-0.6); Hematocrit 29.7 % (37.5-50.1); Hemoglobin 10.2 g/dL (12.9-16.9); Immature Granulocytes % 0.3 % (0-4); Lymphocytes # 1.4 K/mcL (0.6-4.6); Lymphocytes % 13.5 %; Mean Corpuscular HGB Conc 34.3 g/dL (31.6-35.5); Mean Corpuscular Hemoglobin 31.1 pg (28.0-33.3); Mean Corpuscular Volume 90.5 fL (83.0-100.0); Mean Platelet Volume 10.3 fL (9.4-12.4); Monocytes # 1.3 K/mcL (0.0-1.3); Monocytes % 12.8 %; Neutrophils # 7.3 K/mcL (1.6-8.9); Platelet Count 252 K/mcL (140-400); Red Blood Count 3.28 M/mcL (4.19-5.50); Red Cell Distribution Width 14.5 % (11.5-14.5); Segmented Neutrophils % 71.9 %; White Blood Count 10.2 K/mcL (4.3-11.1)
[2020-11-22 22:44] LABS: Calcium 8.6 mg/dL (8.6-10.3); Potassium 3.3 mEq/L (3.5-5.1)
[2020-11-22 23:09] LABS: Bilirubin,Urine Negative (Negative); Blood,Urine Negative (Negative); Clarity,Urine Clear (Clear); Color,Urine Light-Yellow (Yellow); Glucose,Urine (UA) Normal (Normal); Ketones,Urine Trace mg/dL (Negative); Leukocyte Esterase,Urine Negative (Negative); Nitrite,Urine Negative (Negative); Protein,Urine Trace mg/dL (Neg-Trace); Specific Gravity,Urine 1.015 (1.010-1.025); Urobilinogen,Urine Normal (Normal)
[2020-11-22] MEDS ORDERED: Piperacillin/Tazobactam 3.375 GM in 0.9 % Sodium Chloride Mini Bag 100 ML IVPB ONE (23:22)
[2020-11-22] MEDS ORDERED: 0.9 % Sodium Chloride 500 ML ONE (23:23)
[2020-11-22] MEDS ORDERED: Vancomycin 1,500 MG/265 ML IV.SOLN IVPB ONE (23:30)
[2020-11-23] MEDS ORDERED: 0.9 % Sodium Chloride 500 ML IVC ONE (00:10)
[2020-11-23] MEDS: Norepinephrine 4 MG/254 ML IV.SOLN IVC SCH ×3 (01:03→23:29)
[2020-11-23] MEDS ORDERED: Naloxone 0.4 MG/ML INJ IVP PRN (04:11)
[2020-11-23] MEDS: Ondansetron 4 MG/2 ML VIAL IVP PRN ×2 (04:38→20:56)
[2020-11-23 05:21] LABS: INR 1.7; Prothrombin Time 19.2 Seconds (9.4-12.1)
[2020-11-23 05:34] LABS: Alanine Aminotransferase 6 Units/L (7-52); Albumin 1.8 g/dL (3.5-5.7); Albumin/Globulin Ratio 1.4 (1.1-2.2); Alkaline Phosphatase 28 Units/L (34-104); Aspartate Amino Transferase 8 Units/L (13-39); BUN/Creatinine Ratio 24 (6-26); Bilirubin,Direct 0.1 mg/dL (0.0-0.2); Bilirubin,Indirect 0.3 mg/dL (0.0-1.0); Bilirubin,Total 0.4 mg/dL (0.3-1.0); Blood Urea Nitrogen 17 mg/dL (8-23); Calcium 4.6 mg/dL (8.6-10.3); Carbon Dioxide 12 mEq/L (23-29); Chloride 118 mEq/L (98-107); Globulin 1.3 g/dL (2.4-3.5); Glucose 75 mg/dL (70-105); Magnesium 1.1 mg/dL (1.6-2.6); Osmolality,Calculated 282 (280-300); Potassium 2.2 mEq/L (3.5-5.1); Sodium 136 mEq/L (136-145); Total Protein 3.1 g/dL (6.4-8.9); eGFR For African Americans > 60 (> 60); eGFR For Non-African Americans > 60 (> 60)
[2020-11-23] MEDS: Potassium Chloride 40 MEQ/200 ML BAG IVPB PRN (05:41)
[2020-11-23 06:11] LABS: Basophils # 0.1 K/mcL (0.0-0.2); Basophils % 0.7 %; Eosinophils # 0.1 K/mcL (0.0-0.6); Hematocrit 27.9 % (37.5-50.1); Immature Granulocytes % 0.4 % (0-4); Lymphocytes # 1.3 K/mcL (0.6-4.6); Lymphocytes % 12.5 %; Mean Corpuscular HGB Conc 32.6 g/dL (31.6-35.5); Mean Corpuscular Hemoglobin 30.1 pg (28.0-33.3); Mean Corpuscular Volume 92.4 fL (83.0-100.0); Mean Platelet Volume 9.9 fL (9.4-12.4); Monocytes # 1.3 K/mcL (0.0-1.3); Monocytes % 12.7 %; Platelet Count 243 K/mcL (140-400); Red Blood Count 3.02 M/mcL (4.19-5.50); Red Cell Distribution Width 14.7 % (11.5-14.5); Segmented Neutrophils % 72.7 %
[2020-11-23 06:29] LABS: Alanine Aminotransferase 9 Units/L (7-52); Albumin/Globulin Ratio 1.4 (1.1-2.2); Alkaline Phosphatase 47 Units/L (34-104); Aspartate Amino Transferase 14 Units/L (13-39); BUN/Creatinine Ratio 18 (6-26); Bilirubin,Direct 0.2 mg/dL (0.0-0.2); Bilirubin,Indirect 0.5 mg/dL (0.0-1.0); Bilirubin,Total 0.7 mg/dL (0.3-1.0); Blood Urea Nitrogen 23 mg/dL (8-23); Calcium 7.6 mg/dL (8.6-10.3); Carbon Dioxide 20 mEq/L (23-29); Chloride 101 mEq/L (98-107); Globulin 2.1 g/dL (2.4-3.5); Glucose 110 mg/dL (70-105); Magnesium 1.8 mg/dL (1.6-2.6); Osmolality,Calculated 276 (280-300); Potassium 3.5 mEq/L (3.5-5.1); Sodium 131 mEq/L (136-145); Total Protein 5.1 g/dL (6.4-8.9); eGFR For African Americans > 60 (> 60); eGFR For Non-African Americans 57 (> 60)
[2020-11-23 07:00] LABS: Hemoglobin 9.1 g/dL (12.9-16.9); Neutrophils # 7.3 K/mcL (1.6-8.9)
[2020-11-23 07:03] LABS: Adenovirus F 40/41 PCR Not detected (Not detect); Astrovirus PCR Not detected (Not detect); C.difficile Toxin A/B Gene PCR Not detected (Not detect); Campylobacter by PCR Not detected (Not detect); Cryptosporidium by PCR Not detected (Not detect); Cyclospora cayetanensis PCR Not detected (Not detect); E. coli O157 by PCR Not detected (Not detect); Entamoeba histolytica PCR Not detected (Not detect); Enteroaggregative E.coli(EAEC) Not detected (Not detect); Enteropathogenic E.coli(EPEC) Not detected (Not detect); Enterotoxigenic E.coli (ETEC) Not detected (Not detect); Giardia lamblia PCR Not detected (Not detect); Norovirus GI/GII PCR Not detected (Not detect); Plesiomonas shigelloides PCR Not detected (Not detect); Rotavirus A PCR Not detected (Not detect); Salmonella PCR Not detected (Not detect); Sapovirus PCR Not detected (Not detect); Shig/EnteroinvasiveE coli EIEC Not detected (Not detect); Shigalike tox-prod E coli STEC Not detected (Not detect); Vibrio PCR Not detected (Not detect); Vibrio cholerae PCR Not detected (Not detect); Yersinia enterocolitica PCR Not detected (Not detect)
[2020-11-23] MEDS: Piperacillin/Tazobactam 3.375 GM in 0.9 % Sodium Chloride Mini Bag 100 ML IVPB SCH ×3 (07:18→23:52)
[2020-11-23] MEDS: *HR* Heparin 5,000 UNIT/ML VIAL SQ SCH ×3 (07:18→23:52)
[2020-11-23 08:51] LABS: Adenovirus Not Detected (Not Detect); Bordetella Pertussis Not Detected (Not Detect); Chlamydophila pneumoniae Not Detected (Not Detect); Coronavirus 229E Not Detected (Not Detect); Coronavirus HKU1 Not Detected (Not Detect); Coronavirus NL63 Not Detected (Not Detect); Coronavirus OC43 Not Detected (Not Detect); Human Metapneumovirus Not Detected (Not Detect); Human Rhinovirus/Enterovirus Not Detected (Not Detect); Influenza A Subtype 2009 H1 Not Detected (Not Detect); Influenza B Not Detected (Not Detect); Mycoplasma pneumoniae Not Detected (Not Detect); Parainfluenza Virus 1 Not Detected (Not Detect); Parainfluenza Virus 2 Not Detected (Not Detect); Parainfluenza Virus 3 Not Detected (Not Detect); Parainfluenza Virus 4 Not Detected (Not Detect); Respiratory Syncytial Virus Not Detected (Not Detect); SARS-CoV-2 Not Detected (Not Detect)
[2020-11-23] MEDS: Vancomycin 1,250 MG/262.5 ML IV.SOLN IVPB SCH (12:32)
[2020-11-23] MEDS: Hydrocortisone Sodium Succ 100 MG/2 ML VIAL IVP SCH ×3 (12:38→23:52)
[2020-11-23] MEDS ORDERED: Isovue-370 500 ML BOTTLE IVP ONE (13:33)
[2020-11-23] MEDS: *HR* OxyCODONE/APAP 5/325 TABLET PO PRN (14:24)
[2020-11-23] MEDS: *HR* LORazepam 0.5 MG TABLET PO PRN (16:08)
[2020-11-23] MEDS: Doxycycline 100 MG in 0.9 % Sodium Chloride Mini Bag 100 ML IVPB SCH (18:40)
[2020-11-24] MEDS: *HR* OxyCODONE/APAP 5/325 TABLET PO PRN (03:28)
[2020-11-24] MEDS: Doxycycline 100 MG in 0.9 % Sodium Chloride Mini Bag 100 ML IVPB SCH ×2 (04:59→19:34)
[2020-11-24 05:47] LABS: Basophils % 0.2 %; Hematocrit 26.1 % (37.5-50.1); Hemoglobin 8.9 g/dL (12.9-16.9); Immature Granulocytes % 0.5 % (0-4); Lymphocytes # 0.5 K/mcL (0.6-4.6); Lymphocytes % 8.8 %; Mean Corpuscular HGB Conc 34.1 g/dL (31.6-35.5); Mean Corpuscular Hemoglobin 31.3 pg (28.0-33.3); Mean Corpuscular Volume 91.9 fL (83.0-100.0); Mean Platelet Volume 9.7 fL (9.4-12.4); Monocytes # 0.3 K/mcL (0.0-1.3); Monocytes % 5.4 %; Neutrophils # 4.7 K/mcL (1.6-8.9); Platelet Count 208 K/mcL (140-400); Red Blood Count 2.84 M/mcL (4.19-5.50); Red Cell Distribution Width 14.7 % (11.5-14.5); Segmented Neutrophils % 85.1 %; White Blood Count 5.5 K/mcL (4.3-11.1)
[2020-11-24 06:08] LABS: BUN/Creatinine Ratio 21 (6-26); Blood Urea Nitrogen 22 mg/dL (8-23); Calcium 7.5 mg/dL (8.6-10.3); Carbon Dioxide 18 mEq/L (23-29); Chloride 104 mEq/L (98-107); Glucose 204 mg/dL (70-105); Osmolality,Calculated 281 (280-300); Potassium 3.9 mEq/L (3.5-5.1); Sodium 131 mEq/L (136-145); eGFR For African Americans > 60 (> 60); eGFR For Non-African Americans > 60 (> 60)
[2020-11-24 06:09] LABS: Magnesium 1.8 mg/dL (1.6-2.6); Phosphorous 1.6 mg/dL (2.7-4.5)
[2020-11-24] MEDS: *HR* Heparin 5,000 UNIT/ML VIAL SQ SCH ×2 (07:01→15:37)
[2020-11-24] MEDS: Piperacillin/Tazobactam 3.375 GM in 0.9 % Sodium Chloride Mini Bag 100 ML IVPB SCH ×2 (07:01→15:37)
[2020-11-24] MEDS: Hydrocortisone Sodium Succ 100 MG/2 ML VIAL IVP SCH ×2 (07:01→15:37)
[2020-11-24] MEDS: Potassium Chloride 40 MEQ/200 ML BAG IVPB PRN (07:02)
[2020-11-24] MEDS: Acetaminophen 325 MG TABLET PO PRN (11:45)
[2020-11-24] MEDS: Vancomycin 1,250 MG/262.5 ML IV.SOLN IVPB SCH (14:35)
[2020-11-24] MEDS: Albumin Human 5% 12.5 GM/250 ML IV.SOLN IVC SCH ×2 (19:02→20:45)
[2020-11-24] MEDS: *HR* LORazepam 0.5 MG TABLET PO PRN (19:40)
[2020-11-24] MEDS: Norepinephrine 4 MG/254 ML IV.SOLN IVC SCH (20:45)
[2020-11-25] MEDS: *HR* OxyCODONE/APAP 5/325 TABLET PO PRN ×2 (01:14→09:49)
[2020-11-25] MEDS: Hydrocortisone Sodium Succ 100 MG/2 ML VIAL IVP SCH ×4 (01:15→23:33)
[2020-11-25] MEDS: Piperacillin/Tazobactam 3.375 GM in 0.9 % Sodium Chloride Mini Bag 100 ML IVPB SCH ×4 (01:15→23:33)
[2020-11-25] MEDS: *HR* Heparin 5,000 UNIT/ML VIAL SQ SCH ×4 (01:15→23:33)
[2020-11-25 05:23] LABS: BUN/Creatinine Ratio 20 (6-26); Blood Urea Nitrogen 19 mg/dL (8-23); Calcium 7.6 mg/dL (8.6-10.3); Carbon Dioxide 21 mEq/L (23-29); Chloride 106 mEq/L (98-107); Glucose 141 mg/dL (70-105); Osmolality,Calculated 283 (280-300); Potassium 3.7 mEq/L (3.5-5.1); Sodium 134 mEq/L (136-145); eGFR For African Americans > 60 (> 60); eGFR For Non-African Americans > 60 (> 60)
[2020-11-25] MEDS: Doxycycline 100 MG in 0.9 % Sodium Chloride Mini Bag 100 ML IVPB SCH ×2 (06:21→17:16)
[2020-11-25] MEDS: Potassium Chloride 40 MEQ/200 ML BAG IVPB PRN (06:22)
[2020-11-25] MEDS: Acetaminophen 325 MG TABLET PO PRN (06:32)
[2020-11-25] MEDS ORDERED: Perflutren Lipid Microsphere 1.3 ML in 0.9 % Sodium Chloride 8.7 ML IVP PRN (08:02)
[2020-11-25] MEDS: Norepinephrine 4 MG/254 ML IV.SOLN IVC SCH (17:16)
[2020-11-26 04:16] LABS: VBG Ionized Calcium 1.05 mmol/L (1.15-1.35)
[2020-11-26 04:22] LABS: Eosinophils % 0.2 %; Hematocrit 24.4 % (37.5-50.1); Lymphocytes # 0.6 K/mcL (0.6-4.6); Lymphocytes % 9.7 %; Mean Corpuscular HGB Conc 32.8 g/dL (31.6-35.5); Mean Corpuscular Hemoglobin 30.8 pg (28.0-33.3); Mean Corpuscular Volume 93.8 fL (83.0-100.0); Mean Platelet Volume 9.9 fL (9.4-12.4); Monocytes # 0.4 K/mcL (0.0-1.3); Monocytes % 5.6 %; Neutrophils # 5.3 K/mcL (1.6-8.9); Nucleated Red Blood Cells 0.3 /100 WBC (0); Platelet Count 181 K/mcL (140-400); Red Cell Distribution Width 15.1 % (11.5-14.5); Segmented Neutrophils % 82.5 %; White Blood Count 6.4 K/mcL (4.3-11.1)
[2020-11-26 04:43] LABS: BUN/Creatinine Ratio 20 (6-26); Blood Urea Nitrogen 17 mg/dL (8-23); Calcium 7.4 mg/dL (8.6-10.3); Carbon Dioxide 19 mEq/L (23-29); Chloride 106 mEq/L (98-107); Glucose 182 mg/dL (70-105); Magnesium 1.7 mg/dL (1.6-2.6); Osmolality,Calculated 284 (280-300); Phosphorous 1.1 mg/dL (2.7-4.5); Potassium 3.8 mEq/L (3.5-5.1); Sodium 134 mEq/L (136-145); eGFR For African Americans > 60 (> 60); eGFR For Non-African Americans > 60 (> 60)
[2020-11-26] MEDS: Doxycycline 100 MG in 0.9 % Sodium Chloride Mini Bag 100 ML IVPB SCH ×2 (05:47→17:58)
[2020-11-26] MEDS: Calcium Gluconate 1gm/50mL 1 GM/50 ML BAG IVPB SCH ×2 (05:58→06:36)
[2020-11-26] MEDS: *HR* Heparin 5,000 UNIT/ML VIAL SQ SCH ×3 (07:32→23:55)
[2020-11-26] MEDS: Hydrocortisone Sodium Succ 100 MG/2 ML VIAL IVP SCH ×2 (07:32→17:58)
[2020-11-26] MEDS: Piperacillin/Tazobactam 3.375 GM in 0.9 % Sodium Chloride Mini Bag 100 ML IVPB SCH ×3 (07:33→23:54)
[2020-11-26] MEDS: Acetaminophen 325 MG TABLET PO PRN (07:58)
[2020-11-26] MEDS ORDERED: Naloxone 0.4 MG/ML INJ IVP PRN (11:16)
[2020-11-26] MEDS ORDERED: Acetaminophen 325 MG TABLET PO PRN (11:16)
[2020-11-26] MEDS ORDERED: *HR* OxyCODONE/APAP 5/325 TABLET PO PRN (11:16)
[2020-11-26] MEDS ORDERED: Ondansetron 4 MG/2 ML VIAL IVP PRN (11:16)
[2020-11-27 04:28] LABS: VBG Ionized Calcium 1.07 mmol/L (1.15-1.35)
[2020-11-27 04:30] LABS: Basophils % 0.1 %; Eosinophils % 0.3 %; Hematocrit 25.3 % (37.5-50.1); Immature Granulocytes % 4.4 % (0-4); Lymphocytes % 14.3 %; Mean Corpuscular HGB Conc 31.6 g/dL (31.6-35.5); Mean Corpuscular Volume 94.8 fL (83.0-100.0); Mean Platelet Volume 9.7 fL (9.4-12.4); Monocytes # 0.6 K/mcL (0.0-1.3); Neutrophils # 5.2 K/mcL (1.6-8.9); Nucleated Red Blood Cells 0.8 /100 WBC (0); Platelet Count 205 K/mcL (140-400); Red Blood Count 2.67 M/mcL (4.19-5.50); Red Cell Distribution Width 14.9 % (11.5-14.5); Segmented Neutrophils % 72.9 %; White Blood Count 7.1 K/mcL (4.3-11.1)
[2020-11-27 04:47] LABS: Alanine Aminotransferase 23 Units/L (7-52); Albumin 2.9 g/dL (3.5-5.7); Albumin/Globulin Ratio 1.5 (1.1-2.2); Alkaline Phosphatase 41 Units/L (34-104); Aspartate Amino Transferase 18 Units/L (13-39); BUN/Creatinine Ratio 33 (6-26); Bilirubin,Total 0.2 mg/dL (0.3-1.0); Blood Urea Nitrogen 26 mg/dL (8-23); Calcium 7.3 mg/dL (8.6-10.3); Carbon Dioxide 24 mEq/L (23-29); Chloride 106 mEq/L (98-107); Globulin 1.9 g/dL (2.4-3.5); Glucose 163 mg/dL (70-105); Magnesium 1.5 mg/dL (1.6-2.6); Osmolality,Calculated 292 (280-300); Phosphorous 1.4 mg/dL (2.7-4.5); Potassium 3.3 mEq/L (3.5-5.1); Sodium 137 mEq/L (136-145); Total Protein 4.8 g/dL (6.4-8.9); eGFR For African Americans > 60 (> 60); eGFR For Non-African Americans > 60 (> 60)
[2020-11-27] MEDS: Hydrocortisone Sodium Succ 100 MG/2 ML VIAL IVP SCH ×2 (06:17→18:11)
[2020-11-27] MEDS: Doxycycline 100 MG in 0.9 % Sodium Chloride Mini Bag 100 ML IVPB SCH ×2 (06:18→18:12)
[2020-11-27] MEDS: Piperacillin/Tazobactam 3.375 GM in 0.9 % Sodium Chloride Mini Bag 100 ML IVPB SCH ×2 (08:10→15:56)
[2020-11-27] MEDS: *HR* Heparin 5,000 UNIT/ML VIAL SQ SCH ×2 (08:11→15:56)
[2020-11-27] MEDS: *HR* LORazepam 0.5 MG TABLET PO PRN (08:11)
[2020-11-27] MEDS ORDERED: Calcium Gluconate 1gm/50mL 1 GM/50 ML BAG IVPB ONE (10:21)
[2020-11-27] MEDS ORDERED: Potassium Phosphate 44 MEQ in 0.9 % Sodium Chloride 250 ML IVPB ONE (11:30)
[2020-11-27] MEDS ORDERED: *HR* LORazepam 0.5 MG TABLET PO PRN (11:55)
[2020-11-27] MEDS ORDERED: Albuterol 2.5 MG/3 ML NEBULIZER IH PRN (11:55)
[2020-11-27] MEDS ORDERED: Gadolinium Contrast Agent (WT Based) IV PRN (11:58)
[2020-11-27 13:09] LABS: VBG Ionized Calcium 1.14 mmol/L (1.15-1.35)
[2020-11-27] MEDS ORDERED: Dextrose Gel 15 GM/37.5 ML TUBE PO PRN ×2 (14:27)
[2020-11-27] MEDS ORDERED: *HR* Dextrose 50 % in Water (Vial) 50 ML VIAL IVP PRN (14:27)
[2020-11-27] MEDS ORDERED: D5% in Water 1,000 ML IVC PRN (14:27)
[2020-11-27] MEDS: Insulin LISPRO 300 UNITS/3 ML VIAL SUBQ SCH (18:12)
[2020-11-28] MEDS: Piperacillin/Tazobactam 3.375 GM in 0.9 % Sodium Chloride Mini Bag 100 ML IVPB SCH ×4 (00:06→23:45)
[2020-11-28] MEDS: *HR* Heparin 5,000 UNIT/ML VIAL SQ SCH ×4 (00:06→23:46)
[2020-11-28] MEDS: Insulin LISPRO 300 UNITS/3 ML VIAL SUBQ SCH ×5 (00:08→23:46)
[2020-11-28] MEDS: *HR* LORazepam 0.5 MG TABLET PO PRN ×2 (00:34→17:50)
[2020-11-28] MEDS: Doxycycline 100 MG in 0.9 % Sodium Chloride Mini Bag 100 ML IVPB SCH ×2 (05:50→19:48)
[2020-11-28 06:12] LABS: Hematocrit 24.8 % (37.5-50.1); Hemoglobin 8.3 g/dL (12.9-16.9); Mean Corpuscular HGB Conc 33.5 g/dL (31.6-35.5); Mean Corpuscular Volume 95.8 fL (83.0-100.0); Mean Platelet Volume 9.6 fL (9.4-12.4); Platelet Count 208 K/mcL (140-400); Red Blood Count 2.59 M/mcL (4.19-5.50); Red Cell Distribution Width 15.5 % (11.5-14.5)
[2020-11-28 06:32] LABS: BUN/Creatinine Ratio 23 (6-26); Blood Urea Nitrogen 19 mg/dL (8-23); Carbon Dioxide 24 mEq/L (23-29); Chloride 108 mEq/L (98-107); Glucose 131 mg/dL (70-105); Osmolality,Calculated 290 (280-300); Phosphorous 1.4 mg/dL (2.7-4.5); Potassium 3.5 mEq/L (3.5-5.1); Sodium 138 mEq/L (136-145); eGFR For African Americans > 60 (> 60); eGFR For Non-African Americans > 60 (> 60)
[2020-11-28] MEDS ORDERED: Potassium Phosphate 44 MEQ in 0.9 % Sodium Chloride 250 ML IVPB ONE (07:25)
[2020-11-28] MEDS: Loratadine 10 MG TABLET PO SCH (09:00)
[2020-11-28] MEDS ORDERED: predniSONE 10 MG TABLET PO SCH (09:00)
[2020-11-28] MEDS ORDERED: Calcium Gluconate 1gm/50mL 1 GM/50 ML BAG IVPB ONE (14:19)
[2020-11-28] MEDS: predniSONE 10 MG TABLET PO SCH (17:45)
[2020-11-29] MEDS: Insulin LISPRO 300 UNITS/3 ML VIAL SUBQ SCH (06:00)
[2020-11-29] MEDS: Loratadine 10 MG TABLET PO SCH (07:35)
[2020-11-29] MEDS: *HR* Heparin 5,000 UNIT/ML VIAL SQ SCH (07:35)
[2020-11-29] MEDS: predniSONE 10 MG TABLET PO SCH (07:35)
[2020-11-29] MEDS: Doxycycline 100 MG in 0.9 % Sodium Chloride Mini Bag 100 ML IVPB SCH (07:36)
[2020-11-29] MEDS: Piperacillin/Tazobactam 3.375 GM in 0.9 % Sodium Chloride Mini Bag 100 ML IVPB SCH (09:10)
[2020-11-29 10:49] VITALS: BP 103/55
== END 2020-11-29 13:18 | disposition home health service (06) | DRG 871 ==
LOC: EMEROOARM 21:33 → ICNU 21:33 → SUATTDRO 11-23 10:48 → 2ANU 11-26 22:08
PROVIDERS: ADMIT Internal Medicine; ATTEND Internal Medicine

== ENCOUNTER 2020-12-14 07:28 | Inpatient (IN) ==
[2020-12-14] MEDS ORDERED: 0.9 % Sodium Chloride 1,000 ML ONE (07:39)
[2020-12-14] MEDS ORDERED: *HR* Dextrose 50 % in Water (Vial) 50 ML VIAL ONE (07:39)
[2020-12-14] MEDS ORDERED: *HR* Dextrose 50 % in Water (Vial) 50 ML VIAL IVP ONE ×2 (07:45→11:41)
[2020-12-14] MEDS ORDERED: 0.9 % Sodium Chloride 1,000 ML IVC ONE (07:45)
[2020-12-14 07:46] LABS: ABG Base Excess -6 mEq/L (-2 to 3); ABG HCO3 16 mEq/L (21-27); ABG Oxygen Saturation 97 % (95-98); ABG PCO2 24 mmHg (35-45); ABG PH 7.44 pH Units (7.32-7.45); ABG PO2 84 mmHg (85-104); ABG TCO2 17 mEq/L (20-26)
[2020-12-14 08:01] LABS: Hematocrit 40.4 % (37.5-50.1); Hemoglobin 12.9 g/dL (12.9-16.9); Mean Corpuscular HGB Conc 31.9 g/dL (31.6-35.5); Mean Corpuscular Hemoglobin 31.3 pg (28.0-33.3); Mean Corpuscular Volume 98.1 fL (83.0-100.0); Mean Platelet Volume 9.8 fL (9.4-12.4); Platelet Count 219 K/mcL (140-400); Red Blood Count 4.12 M/mcL (4.19-5.50); Red Cell Distribution Width 16.6 % (11.5-14.5); White Blood Count 11.7 K/mcL (4.3-11.1)
[2020-12-14] MEDS ORDERED: Isovue-370 500 ML BOTTLE IVP ONE (08:06)
[2020-12-14 08:09] LABS: INR 1.4; Prothrombin Time 16.1 Seconds (9.4-12.1)
[2020-12-14 08:12] LABS: Activated Partial Thrombo Time 25.4 Seconds (26.0-36.0)
[2020-12-14 08:22] LABS: BUN/Creatinine Ratio 17 (6-26); Blood Urea Nitrogen 22 mg/dL (8-23); Calcium 9.4 mg/dL (8.6-10.3); Carbon Dioxide 19 mEq/L (23-29); Chloride 99 mEq/L (98-107); Glucose 111 mg/dL (70-105); Osmolality,Calculated 274 (280-300); Potassium 5.4 mEq/L (3.5-5.1); Sodium 130 mEq/L (136-145); eGFR For African Americans > 60 (> 60); eGFR For Non-African Americans 55 (> 60)
[2020-12-14 08:23] LABS: Troponin I 0.03 ng/mL (< 0.04)
[2020-12-14 08:36] LABS: Alanine Aminotransferase 19 Units/L (7-52); Albumin 4.3 g/dL (3.5-5.7); Albumin/Globulin Ratio 1.5 (1.1-2.2); Alkaline Phosphatase 73 Units/L (34-104); Aspartate Amino Transferase 18 Units/L (13-39); Bilirubin,Direct 0.2 mg/dL (0.0-0.2); Bilirubin,Total 1.2 mg/dL (0.3-1.0); Globulin 2.9 g/dL (2.4-3.5); Magnesium 1.7 mg/dL (1.6-2.6); Total Protein 7.2 g/dL (6.4-8.9)
[2020-12-14] MEDS: Norepinephrine 4 MG/254 ML IV.SOLN IVC SCH ×3 (08:43→22:49)
[2020-12-14 08:44] LABS: Thyroid Stimulating Hormone 4.647 mcIU/mL (0.340-5.600)
[2020-12-14] MEDS ORDERED: Vancomycin 1,500 MG/265 ML IV.SOLN IVPB ONE (08:48)
[2020-12-14] MEDS ORDERED: Norepinephrine 4 MG/254 ML IV.SOLN IVC SCH (09:00)
[2020-12-14] MEDS ORDERED: Piperacillin/Tazobactam 3.375 GM in Water for inj. (sterile) 20 ML IVP ONE (09:05)
[2020-12-14] MEDS ORDERED: 0.9 % Sodium Chloride 500 ML IVC ONE (09:07)
[2020-12-14 09:34] LABS: Bilirubin,Urine Negative (Negative); Blood,Urine Negative (Negative); Clarity,Urine Clear (Clear); Color,Urine Light-Yellow (Yellow); Glucose,Urine (UA) 150 mg/dL (Normal); Ketones,Urine Negative (Negative); Leukocyte Esterase,Urine Negative (Negative); Mucus,Urine Few per lpf (None-Few); Nitrite,Urine Negative (Negative); Protein,Urine Trace mg/dL (Neg-Trace); RBC,Urine 0-3 per hpf (0-3); Specific Gravity,Urine 1.026 (1.010-1.025); Urobilinogen,Urine Normal (Normal); WBC,Urine 0-3 per hpf (0-3)
[2020-12-14] MEDS ORDERED: Naloxone 0.4 MG/ML INJ IVP PRN (09:38)
[2020-12-14] MEDS ORDERED: Acetaminophen 325 MG TABLET PO PRN (09:38)
[2020-12-14] MEDS ORDERED: Vancomycin (wt based) 1,000 MG VIAL IVPB SCH (10:00)
[2020-12-14 10:13] LABS: Adenovirus Not Detected (Not Detect); Coronavirus 229E Not Detected (Not Detect); Coronavirus HKU1 Not Detected (Not Detect); Coronavirus NL63 Not Detected (Not Detect); Coronavirus OC43 Not Detected (Not Detect); Human Metapneumovirus Not Detected (Not Detect); Human Rhinovirus/Enterovirus Not Detected (Not Detect); Influenza A Subtype 2009 H1 Not Detected (Not Detect); SARS-CoV-2 Not Detected (Not Detect)
[2020-12-14 10:14] LABS: Bordetella Pertussis Not Detected (Not Detect); Chlamydophila pneumoniae Not Detected (Not Detect); Influenza B Not Detected (Not Detect); Mycoplasma pneumoniae Not Detected (Not Detect); Parainfluenza Virus 1 Not Detected (Not Detect); Parainfluenza Virus 2 Not Detected (Not Detect); Parainfluenza Virus 3 Not Detected (Not Detect); Parainfluenza Virus 4 Not Detected (Not Detect); Respiratory Syncytial Virus Not Detected (Not Detect)
[2020-12-14] MEDS: Morphine Sulfate ER (12 HR) 15 MG TABLET.ER PO SCH ×2 (12:10→23:29)
[2020-12-14] MEDS ORDERED: Norepinephrine 4 MG/254 ML 0.9% NaCL IVC ONE (12:14)
[2020-12-14] MEDS: Hydrocortisone Sodium Succ 100 MG/2 ML VIAL IVP SCH ×3 (12:34→23:29)
[2020-12-14 12:58] LABS: BUN/Creatinine Ratio 17 (6-26); Blood Urea Nitrogen 18 mg/dL (8-23); Calcium 6.9 mg/dL (8.6-10.3); Carbon Dioxide 15 mEq/L (23-29); Chloride 106 mEq/L (98-107); Glucose 339 mg/dL (70-105); Osmolality,Calculated 281 (280-300); Potassium 4.7 mEq/L (3.5-5.1); Sodium 128 mEq/L (136-145); eGFR For African Americans > 60 (> 60); eGFR For Non-African Americans > 60 (> 60)
[2020-12-14] MEDS: Azithromycin 500 MG in 0.9 % Sodium Chloride 250 ML IVPB SCH (14:15)
[2020-12-14] MEDS ORDERED: Ondansetron 4 MG/2 ML VIAL IVP PRN (14:28)
[2020-12-14] MEDS ORDERED: Albuterol 2.5 MG/3 ML NEBULIZER IH PRN (14:29)
[2020-12-14] MEDS: Ipratropium/Albuterol Neb 3 ML IH SCH ×2 (15:36→21:02)
[2020-12-14] MEDS: Piperacillin/Tazobactam 3.375 GM in 0.9 % Sodium Chloride Mini Bag 100 ML IVPB SCH ×2 (17:05→23:29)
[2020-12-14] MEDS ORDERED: Vancomycin 1,250 MG/262.5 ML IV.SOLN IVPB SCH (22:00)
[2020-12-15 03:47] LABS: Basophils % 0.1 %; Hematocrit 27.5 % (37.5-50.1); Immature Granulocytes % 1.2 % (0-4); Lymphocytes # 0.5 K/mcL (0.6-4.6); Lymphocytes % 5.2 %; Mean Corpuscular HGB Conc 32.7 g/dL (31.6-35.5); Mean Corpuscular Hemoglobin 31.3 pg (28.0-33.3); Mean Corpuscular Volume 95.5 fL (83.0-100.0); Mean Platelet Volume 9.4 fL (9.4-12.4); Monocytes # 0.4 K/mcL (0.0-1.3); Monocytes % 3.5 %; Neutrophils # 9.3 K/mcL (1.6-8.9); Platelet Count 173 K/mcL (140-400); Red Blood Count 2.88 M/mcL (4.19-5.50); Red Cell Distribution Width 16.1 % (11.5-14.5); White Blood Count 10.4 K/mcL (4.3-11.1)
[2020-12-15 04:03] LABS: Alanine Aminotransferase 13 Units/L (7-52); Albumin 3.1 g/dL (3.5-5.7); Albumin/Globulin Ratio 1.3 (1.1-2.2); Alkaline Phosphatase 52 Units/L (34-104); Aspartate Amino Transferase 12 Units/L (13-39); BUN/Creatinine Ratio 19 (6-26); Bilirubin,Direct 0.2 mg/dL (0.0-0.2); Bilirubin,Indirect 0.7 mg/dL (0.0-1.0); Bilirubin,Total 0.9 mg/dL (0.3-1.0); Blood Urea Nitrogen 17 mg/dL (8-23); Calcium 7.3 mg/dL (8.6-10.3); Carbon Dioxide 16 mEq/L (23-29); Chloride 107 mEq/L (98-107); Globulin 2.3 g/dL (2.4-3.5); Glucose 160 mg/dL (70-105); Magnesium 1.5 mg/dL (1.6-2.6); Osmolality,Calculated 279 (280-300); Phosphorous 2.4 mg/dL (2.7-4.5); Potassium 4.8 mEq/L (3.5-5.1); Sodium 132 mEq/L (136-145); Total Protein 5.4 g/dL (6.4-8.9); eGFR For African Americans > 60 (> 60); eGFR For Non-African Americans > 60 (> 60)
[2020-12-15] MEDS: Ipratropium/Albuterol Neb 3 ML IH SCH ×4 (04:04→22:40)
[2020-12-15] MEDS: *HR* Enoxaparin 40 MG/0.4 ML SYRINGE SQ SCH (05:27)
[2020-12-15] MEDS: Calcium Gluconate 1gm/50mL 1 GM/50 ML BAG IVPB SCH ×2 (05:28→06:47)
[2020-12-15] MEDS: *HR* OxyCODONE/APAP 5/325 TABLET PO PRN ×2 (05:29→15:37)
[2020-12-15] MEDS: Hydrocortisone Sodium Succ 100 MG/2 ML VIAL IVP SCH ×3 (08:36→23:32)
[2020-12-15] MEDS: Piperacillin/Tazobactam 3.375 GM in 0.9 % Sodium Chloride Mini Bag 100 ML IVPB SCH ×3 (08:36→23:32)
[2020-12-15] MEDS: Albumin Human 5% 12.5 GM/250 ML IV.SOLN IVC SCH ×2 (08:37→09:51)
[2020-12-15] MEDS: Azithromycin 500 MG in 0.9 % Sodium Chloride 250 ML IVPB SCH (10:49)
[2020-12-15] MEDS: Morphine Sulfate ER (12 HR) 15 MG TABLET.ER PO SCH ×2 (13:22→23:33)
[2020-12-16] MEDS ORDERED: *HR* LORazepam 2 MG/ML VIAL IVP ONE (02:28)
[2020-12-16] MEDS: Ipratropium/Albuterol Neb 3 ML IH SCH ×4 (03:47→22:34)
[2020-12-16 04:12] LABS: VBG Ionized Calcium 1.01 mmol/L (1.15-1.35)
[2020-12-16 04:19] LABS: INR 1.3; Prothrombin Time 14.6 Seconds (9.4-12.1)
[2020-12-16 04:21] LABS: Activated Partial Thrombo Time 25.8 Seconds (26.0-36.0)
[2020-12-16 04:27] LABS: BUN/Creatinine Ratio 15 (6-26); Blood Urea Nitrogen 13 mg/dL (8-23); Calcium 6.8 mg/dL (8.6-10.3); Carbon Dioxide 16 mEq/L (23-29); Chloride 104 mEq/L (98-107); Glucose 162 mg/dL (70-105); Magnesium 1.7 mg/dL (1.6-2.6); Osmolality,Calculated 272 (280-300); Phosphorous 1.9 mg/dL (2.7-4.5); Potassium 3.9 mEq/L (3.5-5.1); Sodium 129 mEq/L (136-145); eGFR For African Americans > 60 (> 60); eGFR For Non-African Americans > 60 (> 60)
[2020-12-16 04:47] LABS: Hematocrit 20.1 % (37.5-50.1); Hemoglobin 6.4 g/dL (12.9-16.9); Lymphocytes # 0.4 K/mcL (0.6-4.6); Mean Corpuscular HGB Conc 31.8 g/dL (31.6-35.5); Mean Corpuscular Hemoglobin 31.2 pg (28.0-33.3); Mean Platelet Volume 9.8 fL (9.4-12.4); Monocytes # 0.2 K/mcL (0.0-1.3); Monocytes % 3.3 %; Neutrophils # 5.1 K/mcL (1.6-8.9); Platelet Count 149 K/mcL (140-400); Red Blood Count 2.05 M/mcL (4.19-5.50); Red Cell Distribution Width 16.6 % (11.5-14.5); Segmented Neutrophils % 88.7 %; White Blood Count 5.7 K/mcL (4.3-11.1)
[2020-12-16] MEDS: *HR* Enoxaparin 40 MG/0.4 ML SYRINGE SQ SCH (05:42)
[2020-12-16] MEDS ORDERED: 0.9 % Sodium Chloride 250 ML ONE (05:48)
[2020-12-16] MEDS: Hydrocortisone Sodium Succ 100 MG/2 ML VIAL IVP SCH ×3 (07:25→23:52)
[2020-12-16] MEDS: Piperacillin/Tazobactam 3.375 GM in 0.9 % Sodium Chloride Mini Bag 100 ML IVPB SCH ×3 (07:25→23:51)
[2020-12-16] MEDS: Azithromycin 500 MG in 0.9 % Sodium Chloride 250 ML IVPB SCH (09:40)
[2020-12-16] MEDS ORDERED: Ringers Solution, Lactated 1,000 ML IVC SCH (10:15)
[2020-12-16] MEDS ORDERED: Gadolinium Contrast Agent (WT Based) IV PRN ×2 (11:14→12:42)
[2020-12-16] MEDS: Morphine Sulfate ER (12 HR) 15 MG TABLET.ER PO SCH ×2 (12:08→23:56)
[2020-12-16] MEDS ORDERED: Albuterol 2.5 MG/3 ML NEBULIZER IH PRN (12:42)
[2020-12-16] MEDS ORDERED: *HR* LORazepam 0.5 MG TABLET PO PRN (12:42)
[2020-12-16] MEDS ORDERED: Naloxone 0.4 MG/ML INJ IVP PRN (12:42)
[2020-12-16] MEDS ORDERED: Ondansetron 4 MG/2 ML VIAL IVP PRN (12:42)
[2020-12-16] MEDS ORDERED: Acetaminophen 325 MG TABLET PO PRN (12:42)
[2020-12-16] MEDS: Ringers Solution, Lactated 1,000 ML IVC SCH (12:51)
[2020-12-16] MEDS: Loratadine 10 MG TABLET PO SCH (14:15)
[2020-12-16] MEDS: Cholecalciferol (D-3) 1,000 UNIT (25MCG) TABLET PO SCH (14:15)
[2020-12-16 14:44] LABS: Hemoglobin 7.9 g/dL (12.9-16.9)
[2020-12-16 14:46] LABS: Hematocrit 24.2 % (37.5-50.1)
[2020-12-16] MEDS ORDERED: Aspirin Enteric Coated 81 MG Tablet PO ONE (16:45)
[2020-12-16] MEDS ORDERED: Perflutren Lipid Microsphere 1.3 ML in 0.9 % Sodium Chloride 8.7 ML IVP PRN (16:46)
[2020-12-16 17:24] LABS: Hematocrit 24.3 % (37.5-50.1); Hemoglobin 7.9 g/dL (12.9-16.9)
[2020-12-16 23:47] LABS: Hemoglobin 8.5 g/dL (12.9-16.9)
[2020-12-17 01:52] LABS: Eosinophils % 0.2 %; Hemoglobin 7.7 g/dL (12.9-16.9); Immature Granulocytes % 1.4 % (0-4); Lymphocytes # 0.3 K/mcL (0.6-4.6); Lymphocytes % 7.2 %; Mean Corpuscular HGB Conc 32.1 g/dL (31.6-35.5); Mean Corpuscular Hemoglobin 30.8 pg (28.0-33.3); Mean Platelet Volume 9.9 fL (9.4-12.4); Monocytes # 0.2 K/mcL (0.0-1.3); Monocytes % 4.6 %; Neutrophils # 3.6 K/mcL (1.6-8.9); Nucleated Red Blood Cells 0.5 /100 WBC (0); Platelet Count 138 K/mcL (140-400); Segmented Neutrophils % 86.6 %; White Blood Count 4.2 K/mcL (4.3-11.1)
[2020-12-17 02:11] LABS: Alanine Aminotransferase 15 Units/L (7-52); Albumin/Globulin Ratio 1.7 (1.1-2.2); Alkaline Phosphatase 40 Units/L (34-104); Aspartate Amino Transferase 11 Units/L (13-39); BUN/Creatinine Ratio 14 (6-26); Bilirubin,Total 0.4 mg/dL (0.3-1.0); Blood Urea Nitrogen 11 mg/dL (8-23); Calcium 6.6 mg/dL (8.6-10.3); Carbon Dioxide 20 mEq/L (23-29); Chloride 107 mEq/L (98-107); Globulin 1.8 g/dL (2.4-3.5); Glucose 194 mg/dL (70-105); Magnesium 1.7 mg/dL (1.6-2.6); Osmolality,Calculated 281 (280-300); Phosphorous 2.4 mg/dL (2.7-4.5); Potassium 3.3 mEq/L (3.5-5.1); Sodium 133 mEq/L (136-145); Total Protein 4.8 g/dL (6.4-8.9); eGFR For African Americans > 60 (> 60); eGFR For Non-African Americans > 60 (> 60)
[2020-12-17 02:12] LABS: VBG Ionized Calcium 1.03 mmol/L (1.15-1.35)
[2020-12-17] MEDS: Ringers Solution, Lactated 1,000 ML IVC SCH (03:44)
[2020-12-17] MEDS: Ipratropium/Albuterol Neb 3 ML IH SCH ×4 (03:51→21:30)
[2020-12-17] MEDS: *HR* Enoxaparin 40 MG/0.4 ML SYRINGE SQ SCH (06:34)
[2020-12-17] MEDS: Loratadine 10 MG TABLET PO SCH (08:40)
[2020-12-17] MEDS: Cholecalciferol (D-3) 1,000 UNIT (25MCG) TABLET PO SCH (08:42)
[2020-12-17] MEDS: Piperacillin/Tazobactam 3.375 GM in 0.9 % Sodium Chloride Mini Bag 100 ML IVPB SCH ×2 (08:44→17:57)
[2020-12-17] MEDS ORDERED: Azithromycin 250 MG TABLET PO SCH ×2 (09:00)
[2020-12-17] MEDS: Morphine Sulfate ER (12 HR) 15 MG TABLET.ER PO SCH (13:32)
[2020-12-17 14:12] LABS: Hematocrit 26.8 % (37.5-50.1); Hemoglobin 8.9 g/dL (12.9-16.9)
[2020-12-17] MEDS: Hydrocortisone Sodium Succ 100 MG/2 ML VIAL IVP SCH (17:56)
[2020-12-17] MEDS: *HR* OxyCODONE/APAP 5/325 TABLET PO PRN (18:00)
[2020-12-17] MEDS: Aspirin 81 MG TAB.CHEW PO SCH (18:00)
[2020-12-17] MEDS: Sennosides/Docusate Sodium TABLET PO SCH (20:50)
[2020-12-18] MEDS: Morphine Sulfate ER (12 HR) 15 MG TABLET.ER PO SCH ×2 (00:26→12:34)
[2020-12-18] MEDS: Piperacillin/Tazobactam 3.375 GM in 0.9 % Sodium Chloride Mini Bag 100 ML IVPB SCH ×3 (00:27→15:31)
[2020-12-18] MEDS: Ipratropium/Albuterol Neb 3 ML IH SCH ×4 (03:42→22:07)
[2020-12-18 05:37] LABS: Basophils % 0.2 %; Eosinophils % 0.2 %; Hemoglobin 8.3 g/dL (12.9-16.9); Immature Granulocytes % 3.6 % (0-4); Lymphocytes # 0.6 K/mcL (0.6-4.6); Lymphocytes % 13.6 %; Mean Corpuscular HGB Conc 31.9 g/dL (31.6-35.5); Mean Corpuscular Hemoglobin 31.2 pg (28.0-33.3); Mean Corpuscular Volume 97.7 fL (83.0-100.0); Mean Platelet Volume 10.1 fL (9.4-12.4); Monocytes # 0.2 K/mcL (0.0-1.3); Monocytes % 5.3 %; Neutrophils # 3.5 K/mcL (1.6-8.9); Nucleated Red Blood Cells 1.1 /100 WBC (0); Platelet Count 155 K/mcL (140-400); Red Blood Count 2.66 M/mcL (4.19-5.50); Red Cell Distribution Width 17.2 % (11.5-14.5); Segmented Neutrophils % 77.1 %; White Blood Count 4.5 K/mcL (4.3-11.1)
[2020-12-18] MEDS: *HR* Enoxaparin 40 MG/0.4 ML SYRINGE SQ SCH (05:39)
[2020-12-18] MEDS: Hydrocortisone Sodium Succ 100 MG/2 ML VIAL IVP SCH ×2 (05:40→18:40)
[2020-12-18 06:00] LABS: % Iron Saturation 30 % (20-55); BUN/Creatinine Ratio 19 (6-26); Blood Urea Nitrogen 14 mg/dL (8-23); Carbon Dioxide 21 mEq/L (23-29); Chloride 106 mEq/L (98-107); Glucose 117 mg/dL (70-105); Iron 66 mcg/dL (65-175); Magnesium 1.7 mg/dL (1.6-2.6); Osmolality,Calculated 282 (280-300); Phosphorous 1.2 mg/dL (2.7-4.5); Potassium 3.7 mEq/L (3.5-5.1); Sodium 135 mEq/L (136-145); Transferrin 157 mg/dL (203-362); eGFR For African Americans > 60 (> 60); eGFR For Non-African Americans > 60 (> 60)
[2020-12-18] MEDS: Sennosides/Docusate Sodium TABLET PO SCH ×2 (08:51→22:07)
[2020-12-18] MEDS: Cholecalciferol (D-3) 1,000 UNIT (25MCG) TABLET PO SCH (08:52)
[2020-12-18] MEDS: Aspirin 81 MG TAB.CHEW PO SCH (08:52)
[2020-12-18] MEDS: Loratadine 10 MG TABLET PO SCH (08:52)
[2020-12-18] MEDS: *HR* OxyCODONE/APAP 5/325 TABLET PO PRN (22:06)
[2020-12-19] MEDS: Morphine Sulfate ER (12 HR) 15 MG TABLET.ER PO SCH ×2 (00:54→12:02)
[2020-12-19] MEDS: Piperacillin/Tazobactam 3.375 GM in 0.9 % Sodium Chloride Mini Bag 100 ML IVPB SCH ×3 (00:54→15:45)
[2020-12-19 02:04] LABS: Basophils % 0.2 %; Eosinophils % 0.4 %; Hematocrit 26.6 % (37.5-50.1); Hemoglobin 8.4 g/dL (12.9-16.9); Immature Granulocytes % 3.9 % (0-4); Lymphocytes # 0.7 K/mcL (0.6-4.6); Lymphocytes % 11.9 %; Mean Corpuscular HGB Conc 31.6 g/dL (31.6-35.5); Mean Corpuscular Volume 98.2 fL (83.0-100.0); Mean Platelet Volume 9.8 fL (9.4-12.4); Monocytes # 0.2 K/mcL (0.0-1.3); Monocytes % 3.9 %; Neutrophils # 4.5 K/mcL (1.6-8.9); Nucleated Red Blood Cells 1.1 /100 WBC (0); Platelet Count 158 K/mcL (140-400); Red Blood Count 2.71 M/mcL (4.19-5.50); Red Cell Distribution Width 17.5 % (11.5-14.5); Segmented Neutrophils % 79.7 %; White Blood Count 5.7 K/mcL (4.3-11.1)
[2020-12-19 02:23] LABS: BUN/Creatinine Ratio 17 (6-26); Blood Urea Nitrogen 13 mg/dL (8-23); Carbon Dioxide 20 mEq/L (23-29); Chloride 107 mEq/L (98-107); Glucose 133 mg/dL (70-105); Magnesium 1.7 mg/dL (1.6-2.6); Osmolality,Calculated 280 (280-300); Potassium 3.9 mEq/L (3.5-5.1); Sodium 134 mEq/L (136-145); eGFR For African Americans > 60 (> 60); eGFR For Non-African Americans > 60 (> 60)
[2020-12-19 02:41] LABS: Ferritin 861 ng/mL (20-250)
[2020-12-19 02:46] LABS: Folate 11.5 ng/mL (3.0-16.0)
[2020-12-19] MEDS: Ipratropium/Albuterol Neb 3 ML IH SCH ×4 (03:45→22:00)
[2020-12-19] MEDS: Hydrocortisone Sodium Succ 100 MG/2 ML VIAL IVP SCH (06:41)
[2020-12-19] MEDS: *HR* Enoxaparin 40 MG/0.4 ML SYRINGE SQ SCH (06:42)
[2020-12-19] MEDS: Loratadine 10 MG TABLET PO SCH (08:57)
[2020-12-19] MEDS: Sennosides/Docusate Sodium TABLET PO SCH ×2 (08:58→19:44)
[2020-12-19] MEDS: Aspirin 81 MG TAB.CHEW PO SCH (08:58)
[2020-12-19] MEDS: Cholecalciferol (D-3) 1,000 UNIT (25MCG) TABLET PO SCH (08:58)
[2020-12-19] MEDS: polyethylene glycoL 3350 17 GM POWD.PACK PO SCH (12:02)
[2020-12-19] MEDS ORDERED: Hydrocortisone Sodium Succ 100 MG/2 ML VIAL IVP ONE (18:00)
[2020-12-20] MEDS: Piperacillin/Tazobactam 3.375 GM in 0.9 % Sodium Chloride Mini Bag 100 ML IVPB SCH ×2 (01:07→10:09)
[2020-12-20] MEDS: Morphine Sulfate ER (12 HR) 15 MG TABLET.ER PO SCH (01:08)
[2020-12-20] MEDS: Ipratropium/Albuterol Neb 3 ML IH SCH ×2 (04:24→10:40)
[2020-12-20] MEDS: *HR* Enoxaparin 40 MG/0.4 ML SYRINGE SQ SCH (04:57)
[2020-12-20 05:06] LABS: Basophils % 0.2 %; Eosinophils # 0.1 K/mcL (0.0-0.6); Eosinophils % 0.9 %; Hematocrit 29.9 % (37.5-50.1); Hemoglobin 9.5 g/dL (12.9-16.9); Immature Granulocytes % 5.2 % (0-4); Lymphocytes # 0.9 K/mcL (0.6-4.6); Lymphocytes % 16.4 %; Mean Corpuscular HGB Conc 31.8 g/dL (31.6-35.5); Mean Corpuscular Hemoglobin 31.6 pg (28.0-33.3); Mean Corpuscular Volume 99.3 fL (83.0-100.0); Mean Platelet Volume 9.8 fL (9.4-12.4); Monocytes # 0.2 K/mcL (0.0-1.3); Monocytes % 3.8 %; Neutrophils # 4.1 K/mcL (1.6-8.9); Nucleated Red Blood Cells 0.5 /100 WBC (0); Platelet Count 171 K/mcL (140-400); Red Blood Count 3.01 M/mcL (4.19-5.50); Red Cell Distribution Width 17.7 % (11.5-14.5); Segmented Neutrophils % 73.5 %; White Blood Count 5.6 K/mcL (4.3-11.1)
[2020-12-20 05:18] LABS: BUN/Creatinine Ratio 18 (6-26); Blood Urea Nitrogen 14 mg/dL (8-23); Calcium 7.5 mg/dL (8.6-10.3); Carbon Dioxide 22 mEq/L (23-29); Chloride 107 mEq/L (98-107); Glucose 98 mg/dL (70-105); Magnesium 1.8 mg/dL (1.6-2.6); Osmolality,Calculated 280 (280-300); Potassium 3.9 mEq/L (3.5-5.1); Sodium 135 mEq/L (136-145); eGFR For African Americans > 60 (> 60); eGFR For Non-African Americans > 60 (> 60)
[2020-12-20 06:48] VITALS: BP 121/67
[2020-12-20] MEDS ORDERED: Hydrocortisone 10 MG TABLET PO SCH (09:00)
[2020-12-20] MEDS: Aspirin 81 MG TAB.CHEW PO SCH (10:01)
[2020-12-20] MEDS: polyethylene glycoL 3350 17 GM POWD.PACK PO SCH (10:01)
[2020-12-20] MEDS: Loratadine 10 MG TABLET PO SCH (10:01)
[2020-12-20] MEDS: Sennosides/Docusate Sodium TABLET PO SCH (10:01)
[2020-12-20] MEDS: Cholecalciferol (D-3) 1,000 UNIT (25MCG) TABLET PO SCH (10:01)
== END 2020-12-20 13:35 | disposition home health service (06) | DRG 64 ==
LOC: EMEROOARM 07:28 → ICNU 07:28 → SUATTDRO 10:20 → ICNU 11:26 → 2NENU 12-16 17:56
PROVIDERS: ADMIT Pediatrics; ATTEND Pharmacist

== ENCOUNTER 2020-12-29 11:12 | Inpatient (IN) ==
[2020-12-29] MEDS ORDERED: Piperacillin/Tazobactam 3.375 GM in 0.9 % Sodium Chloride Mini Bag 100 ML IVPB ONE (11:25)
[2020-12-29] MEDS ORDERED: Isovue-370 500 ML BOTTLE IVP ONE (11:37)
[2020-12-29] MEDS ORDERED: Ondansetron 4 MG/2 ML VIAL IVP ONE (11:52)
[2020-12-29] MEDS: 0.9 % Sodium Chloride 1,000 ML IVC SCH ×2 (11:52→13:53)
[2020-12-29] MEDS ORDERED: Vancomycin 1,250 MG/262.5 ML IV.SOLN IVPB ONE (12:00)
[2020-12-29 12:37] LABS: INR 1.3; Prothrombin Time 14.9 Seconds (9.4-12.1)
[2020-12-29 12:43] LABS: Alanine Aminotransferase 12 Units/L (7-52); Albumin 3.7 g/dL (3.5-5.7); Albumin/Globulin Ratio 1.3 (1.1-2.2); Alkaline Phosphatase 64 Units/L (34-104); Aspartate Amino Transferase 18 Units/L (13-39); BUN/Creatinine Ratio 22 (6-26); Bilirubin,Total 0.9 mg/dL (0.3-1.0); Blood Urea Nitrogen 29 mg/dL (8-23); Calcium 9.4 mg/dL (8.6-10.3); Carbon Dioxide 20 mEq/L (23-29); Chloride 97 mEq/L (98-107); Globulin 2.9 g/dL (2.4-3.5); Glucose 94 mg/dL (70-105); Magnesium 1.6 mg/dL (1.6-2.6); Osmolality,Calculated 272 (280-300); Phosphorous 2.9 mg/dL (2.7-4.5); Potassium 4.9 mEq/L (3.5-5.1); Sodium 128 mEq/L (136-145); Total Protein 6.6 g/dL (6.4-8.9); Troponin I < 0.03 ng/mL (< 0.04); eGFR For African Americans > 60 (> 60); eGFR For Non-African Americans 54 (> 60)
[2020-12-29 12:56] LABS: Thyroid Stimulating Hormone 3.131 mcIU/mL (0.340-5.600)
[2020-12-29 13:21] LABS: VBG Ionized Calcium 1.11 mmol/L (1.15-1.35)
[2020-12-29 13:55] LABS: Bilirubin,Urine Negative (Negative); Blood,Urine Negative (Negative); Clarity,Urine Clear (Clear); Color,Urine Yellow (Yellow); Glucose,Urine (UA) Normal (Normal); Ketones,Urine Negative (Negative); Leukocyte Esterase,Urine Negative (Negative); Mucus,Urine Few per lpf (None-Few); Nitrite,Urine Negative (Negative); PH,Urine 6.5 pH Units (5.0-8.0); Protein,Urine Trace mg/dL (Neg-Trace); RBC,Urine 0-3 per hpf (0-3); Specific Gravity,Urine 1.016 (1.010-1.025); WBC,Urine 0-3 per hpf (0-3)
[2020-12-29 13:59] LABS: Hyaline Casts,Urine Few per lpf (None Seen)
[2020-12-29] MEDS ORDERED: Norepinephrine 4 MG/254 ML IV.SOLN IVC SCH (14:45)
[2020-12-29 15:58] LABS: Basophils % 0.3 %; Eosinophils % 0.8 %; Hematocrit 25.1 % (37.5-50.1); Immature Granulocytes % 0.5 % (0-4); Lymphocytes % 25.4 %; Mean Corpuscular HGB Conc 31.9 g/dL (31.6-35.5); Mean Corpuscular Hemoglobin 30.7 pg (28.0-33.3); Mean Corpuscular Volume 96.2 fL (83.0-100.0); Mean Platelet Volume 11.1 fL (9.4-12.4); Monocytes # 0.5 K/mcL (0.0-1.3); Monocytes % 11.3 %; Neutrophils # 2.5 K/mcL (1.6-8.9); Platelet Count 191 K/mcL (140-400); Red Blood Count 2.61 M/mcL (4.19-5.50); Red Cell Distribution Width 16.3 % (11.5-14.5); Segmented Neutrophils % 61.7 %
[2020-12-29] MEDS ORDERED: Acetaminophen IV 1,000 MG/100 ML BAG IVPB ONE (16:12)
[2020-12-29] MEDS ORDERED: methylPREDNISolone 125 MG/2 ML VIAL IVP ONE (16:24)
[2020-12-29] MEDS ORDERED: 0.9 % Sodium Chloride 1,000 ML IVC ONE (17:30)
[2020-12-29] MEDS ORDERED: Naloxone 0.4 MG/ML INJ IVP PRN (17:31)
[2020-12-29 17:54] LABS: Adenovirus Not Detected (Not Detect); Coronavirus 229E Not Detected (Not Detect)
[2020-12-29 17:55] LABS: Bordetella Pertussis Not Detected (Not Detect); Chlamydophila pneumoniae Not Detected (Not Detect); Coronavirus HKU1 Not Detected (Not Detect); Coronavirus NL63 Not Detected (Not Detect); Coronavirus OC43 DETECTED (Not Detect); Human Metapneumovirus Not Detected (Not Detect); Human Rhinovirus/Enterovirus Not Detected (Not Detect); Influenza A Subtype 2009 H1 Not Detected (Not Detect); Influenza B Not Detected (Not Detect); Mycoplasma pneumoniae Not Detected (Not Detect); Parainfluenza Virus 1 Not Detected (Not Detect); Parainfluenza Virus 2 Not Detected (Not Detect); Parainfluenza Virus 3 Not Detected (Not Detect); Parainfluenza Virus 4 Not Detected (Not Detect); Respiratory Syncytial Virus Not Detected (Not Detect); SARS-CoV-2 Not Detected (Not Detect)
[2020-12-29] MEDS ORDERED: Ipratropium/Albuterol Neb 3 ML IH PRN (17:55)
[2020-12-29] MEDS ORDERED: Vancomycin (wt based) 1,000 MG VIAL IVPB SCH (18:00)
[2020-12-29] MEDS ORDERED: Azithromycin 500 MG in 0.9 % Sodium Chloride 250 ML IVPB SCH (18:00)
[2020-12-29] MEDS: Hydrocortisone Sodium Succ 100 MG/2 ML VIAL IVP SCH ×2 (18:10→23:07)
[2020-12-29] MEDS: *HR* Heparin 5,000 UNIT/ML VIAL SQ SCH (18:13)
[2020-12-29] MEDS: Calcium Gluconate 1gm/50mL 1 GM/50 ML BAG IVPB SCH ×2 (18:54→19:45)
[2020-12-29] MEDS: D5% in 0.9% NACL 1,000 ML IVC SCH (19:45)
[2020-12-29 19:57] LABS: BUN/Creatinine Ratio 20 (6-26); Blood Urea Nitrogen 22 mg/dL (8-23); Calcium 7.9 mg/dL (8.6-10.3); Carbon Dioxide 17 mEq/L (23-29); Chloride 102 mEq/L (98-107); Glucose 134 mg/dL (70-105); Osmolality,Calculated 273 (280-300); Potassium 4.3 mEq/L (3.5-5.1); Sodium 129 mEq/L (136-145); eGFR For African Americans > 60 (> 60); eGFR For Non-African Americans > 60 (> 60)
[2020-12-29] MEDS: Norepinephrine 8 MG in 0.9 % Sodium Chloride 250 ML IVC SCH (20:01)
[2020-12-29] MEDS ORDERED: *HR* LORazepam 0.5 MG TABLET PO PRN (20:54)
[2020-12-29] MEDS: Piperacillin/Tazobactam 3.375 GM in 0.9 % Sodium Chloride Mini Bag 100 ML IVPB SCH (23:17)
[2020-12-30] MEDS ORDERED: Vancomycin 1,250 MG/262.5 ML IV.SOLN IVPB ONE
[2020-12-30] MEDS ORDERED: Vancomycin 1,250 MG/262.5 ML IV.SOLN IVPB SCH (01:00)
[2020-12-30] MEDS: *HR* OxyCODONE/APAP 5/325 TABLET PO PRN ×2 (01:32→16:50)
[2020-12-30] MEDS: Norepinephrine 8 MG in 0.9 % Sodium Chloride 250 ML IVC SCH (04:10)
[2020-12-30] MEDS: *HR* Heparin 5,000 UNIT/ML VIAL SQ SCH ×2 (05:20→22:53)
[2020-12-30 05:33] LABS: Basophils % 0.4 %; Hematocrit 28.1 % (37.5-50.1); Immature Granulocytes % 0.4 % (0-4); Lymphocytes # 0.7 K/mcL (0.6-4.6); Lymphocytes % 9.7 %; Mean Corpuscular Hemoglobin 30.4 pg (28.0-33.3); Mean Corpuscular Volume 94.9 fL (83.0-100.0); Mean Platelet Volume 10.3 fL (9.4-12.4); Monocytes # 0.2 K/mcL (0.0-1.3); Neutrophils # 6.3 K/mcL (1.6-8.9); Platelet Count 270 K/mcL (140-400); Red Blood Count 2.96 M/mcL (4.19-5.50); Segmented Neutrophils % 86.5 %
[2020-12-30 05:36] LABS: White Blood Count 7.3 K/mcL (4.3-11.1)
[2020-12-30 05:51] LABS: Alanine Aminotransferase 12 Units/L (7-52); Albumin 3.3 g/dL (3.5-5.7); Albumin/Globulin Ratio 1.3 (1.1-2.2); Alkaline Phosphatase 53 Units/L (34-104); Aspartate Amino Transferase 13 Units/L (13-39); BUN/Creatinine Ratio 19 (6-26); Bilirubin,Direct 0.3 mg/dL (0.0-0.2); Bilirubin,Indirect 0.6 mg/dL (0.0-1.0); Bilirubin,Total 0.9 mg/dL (0.3-1.0); Blood Urea Nitrogen 20 mg/dL (8-23); Calcium 8.5 mg/dL (8.6-10.3); Carbon Dioxide 18 mEq/L (23-29); Chloride 105 mEq/L (98-107); Globulin 2.6 g/dL (2.4-3.5); Glucose 299 mg/dL (70-105); Magnesium 1.7 mg/dL (1.6-2.6); Osmolality,Calculated 284 (280-300); Phosphorous 2.7 mg/dL (2.7-4.5); Potassium 4.8 mEq/L (3.5-5.1); Sodium 130 mEq/L (136-145); Total Protein 5.9 g/dL (6.4-8.9); eGFR For African Americans > 60 (> 60); eGFR For Non-African Americans > 60 (> 60)
[2020-12-30] MEDS ORDERED: Dextrose Gel 15 GM/37.5 ML TUBE PO PRN ×4 (06:33→17:15)
[2020-12-30] MEDS ORDERED: D5% in Water 1,000 ML IVC PRN ×2 (06:33→17:15)
[2020-12-30] MEDS ORDERED: *HR* Dextrose 50 % in Water (Vial) 50 ML VIAL IVP PRN ×2 (06:33→17:15)
[2020-12-30] MEDS: D5% in 0.9% NACL 1,000 ML IVC SCH ×2 (07:00→18:37)
[2020-12-30] MEDS: Hydrocortisone Sodium Succ 100 MG/2 ML VIAL IVP SCH ×3 (07:48→22:53)
[2020-12-30] MEDS: Piperacillin/Tazobactam 3.375 GM in 0.9 % Sodium Chloride Mini Bag 100 ML IVPB SCH ×3 (07:48→22:53)
[2020-12-30] MEDS ORDERED: Isovue-370 500 ML BOTTLE IVP ONE (07:56)
[2020-12-30] MEDS ORDERED: Insulin LISPRO 300 UNITS/3 ML VIAL SUBQ SCH (12:00)
[2020-12-30] MEDS ORDERED: *HR* Heparin 5,000 UNIT/ML VIAL SQ SCH (14:00)
[2020-12-30] MEDS ORDERED: Ipratropium/Albuterol Neb 3 ML IH PRN (17:15)
[2020-12-30] MEDS ORDERED: *HR* LORazepam 0.5 MG TABLET PO PRN ×2 (17:15)
[2020-12-30] MEDS ORDERED: Albuterol 2.5 MG/3 ML NEBULIZER IH PRN (17:15)
[2020-12-30] MEDS ORDERED: Naloxone 0.4 MG/ML INJ IVP PRN (17:15)
[2020-12-30] MEDS ORDERED: Morphine Sulfate ER (12 HR) 15 MG TABLET.ER PO SCH (17:15)
[2020-12-30] MEDS ORDERED: Ondansetron ODT 4 MG TAB.RAPDIS SL PRN (17:15)
[2020-12-30] MEDS ORDERED: *HR* OxyCODONE/APAP 5/325 TABLET PO PRN (17:15)
[2020-12-30] MEDS ORDERED: Morphine Sulfate ER (12 HR) 15 MG TABLET.ER PO PRN (17:25)
[2020-12-30] MEDS: Azithromycin 500 MG in 0.9 % Sodium Chloride 250 ML IVPB SCH (18:38)
[2020-12-30] MEDS: Patient Taking Own Medication 1 EACH AER SCH (19:50)
[2020-12-30] MEDS: Insulin LISPRO 300 UNITS/3 ML VIAL SUBQ SCH (19:50)
[2020-12-31] MEDS: D5% in 0.9% NACL 1,000 ML IVC SCH ×2 (03:52→15:20)
[2020-12-31] MEDS: *HR* OxyCODONE/APAP 5/325 TABLET PO PRN ×2 (03:57→18:06)
[2020-12-31] MEDS ORDERED: Norepinephrine 4 MG/254 ML IV.SOLN IVC SCH ×2 (04:00→19:00)
[2020-12-31] MEDS: *HR* Heparin 5,000 UNIT/ML VIAL SQ SCH ×3 (06:01→21:27)
[2020-12-31 06:09] LABS: Hematocrit 23.1 % (37.5-50.1); Mean Corpuscular HGB Conc 31.2 g/dL (31.6-35.5); Mean Corpuscular Hemoglobin 30.6 pg (28.0-33.3); Mean Corpuscular Volume 98.3 fL (83.0-100.0); Mean Platelet Volume 10.5 fL (9.4-12.4); Platelet Count 214 K/mcL (140-400); Red Blood Count 2.35 M/mcL (4.19-5.50); Red Cell Distribution Width 16.6 % (11.5-14.5); White Blood Count 7.5 K/mcL (4.3-11.1)
[2020-12-31 06:12] LABS: Hemoglobin 7.2 g/dL (12.9-16.9)
[2020-12-31 06:30] LABS: BUN/Creatinine Ratio 16 (6-26); Blood Urea Nitrogen 16 mg/dL (8-23); Calcium 7.4 mg/dL (8.6-10.3); Carbon Dioxide 17 mEq/L (23-29); Chloride 108 mEq/L (98-107); Glucose 188 mg/dL (70-105); Osmolality,Calculated 278 (280-300); Potassium 4.1 mEq/L (3.5-5.1); Sodium 131 mEq/L (136-145); eGFR For African Americans > 60 (> 60); eGFR For Non-African Americans > 60 (> 60)
[2020-12-31] MEDS ORDERED: 0.9 % Sodium Chloride 250 ML IVC SCH (06:45)
[2020-12-31] MEDS: Hydrocortisone Sodium Succ 100 MG/2 ML VIAL IVP SCH ×2 (07:46→23:58)
[2020-12-31] MEDS: Piperacillin/Tazobactam 3.375 GM in 0.9 % Sodium Chloride Mini Bag 100 ML IVPB SCH ×3 (07:46→23:59)
[2020-12-31] MEDS: Patient Taking Own Medication 1 EACH AER SCH (08:20)
[2020-12-31] MEDS: Insulin LISPRO 300 UNITS/3 ML VIAL SUBQ SCH ×4 (08:22→21:33)
[2020-12-31] MEDS ORDERED: Loratadine 10 MG TABLET PO SCH (09:00)
[2020-12-31] MEDS ORDERED: Cholecalciferol (D-3) 1,000 UNIT (25MCG) TABLET PO SCH (09:00)
[2020-12-31] MEDS ORDERED: polyethylene glycoL 3350 17 GM POWD.PACK PO SCH (09:00)
[2020-12-31] MEDS ORDERED: Aspirin 81 MG TAB.CHEW PO SCH (09:00)
[2020-12-31 14:45] LABS: Hematocrit 26.2 % (37.5-50.1); Hemoglobin 8.6 g/dL (12.9-16.9)
[2020-12-31] MEDS ORDERED: Hydrocortisone Sodium Succ 100 MG/2 ML VIAL IVP SCH (16:00)
[2020-12-31] MEDS: Azithromycin 500 MG in 0.9 % Sodium Chloride 250 ML IVPB SCH (18:07)
[2020-12-31] MEDS ORDERED: Naloxone 0.4 MG/ML INJ IVP PRN (19:00)
[2020-12-31] MEDS ORDERED: Ipratropium/Albuterol Neb 3 ML IH PRN (19:00)
[2020-12-31] MEDS ORDERED: *HR* Dextrose 50 % in Water (Vial) 50 ML VIAL IVP PRN (19:00)
[2020-12-31] MEDS ORDERED: D5% in Water 1,000 ML IVC PRN (19:00)
[2020-12-31] MEDS ORDERED: Ondansetron ODT 4 MG TAB.RAPDIS SL PRN (19:00)
[2020-12-31] MEDS ORDERED: *HR* LORazepam 0.5 MG TABLET PO PRN (19:00)
[2020-12-31] MEDS ORDERED: Albuterol 2.5 MG/3 ML NEBULIZER IH PRN (19:00)
[2020-12-31] MEDS ORDERED: Dextrose Gel 15 GM/37.5 ML TUBE PO PRN ×2 (19:00)
[2020-12-31] MEDS ORDERED: Insulin LISPRO 300 UNITS/3 ML VIAL SUBQ SCH (21:00)
[2020-12-31] MEDS: Bevespi Aerosphere Inhaler IH SCH (21:34)
[2021-01-01] MEDS: *HR* OxyCODONE/APAP 5/325 TABLET PO PRN ×2 (00:10→11:55)
[2021-01-01] MEDS: *HR* Heparin 5,000 UNIT/ML VIAL SQ SCH ×3 (06:34→21:03)
[2021-01-01 06:56] LABS: Hematocrit 24.3 % (37.5-50.1); Hemoglobin 7.9 g/dL (12.9-16.9); Mean Corpuscular HGB Conc 32.5 g/dL (31.6-35.5); Mean Corpuscular Hemoglobin 30.6 pg (28.0-33.3); Mean Corpuscular Volume 94.2 fL (83.0-100.0); Mean Platelet Volume 10.8 fL (9.4-12.4); Platelet Count 204 K/mcL (140-400); Red Blood Count 2.58 M/mcL (4.19-5.50); Red Cell Distribution Width 16.6 % (11.5-14.5); White Blood Count 3.8 K/mcL (4.3-11.1)
[2021-01-01 07:14] LABS: BUN/Creatinine Ratio 18 (6-26); Blood Urea Nitrogen 15 mg/dL (8-23); Carbon Dioxide 20 mEq/L (23-29); Chloride 108 mEq/L (98-107); Glucose 160 mg/dL (70-105); Osmolality,Calculated 282 (280-300); Potassium 3.7 mEq/L (3.5-5.1); Sodium 134 mEq/L (136-145); eGFR For African Americans > 60 (> 60); eGFR For Non-African Americans > 60 (> 60)
[2021-01-01] MEDS: Cholecalciferol (D-3) 1,000 UNIT (25MCG) TABLET PO SCH (07:36)
[2021-01-01] MEDS: Loratadine 10 MG TABLET PO SCH (07:36)
[2021-01-01] MEDS: Aspirin 81 MG TAB.CHEW PO SCH (07:37)
[2021-01-01] MEDS: Hydrocortisone Sodium Succ 100 MG/2 ML VIAL IVP SCH (07:38)
[2021-01-01] MEDS: Bevespi Aerosphere Inhaler IH SCH (07:39)
[2021-01-01] MEDS: Insulin LISPRO 300 UNITS/3 ML VIAL SUBQ SCH ×4 (07:53→20:36)
[2021-01-01] MEDS: Piperacillin/Tazobactam 3.375 GM in 0.9 % Sodium Chloride Mini Bag 100 ML IVPB SCH ×2 (08:05→15:01)
[2021-01-01] MEDS: polyethylene glycoL 3350 17 GM POWD.PACK PO SCH (08:08)
[2021-01-01 09:13] LABS: BUN/Creatinine Ratio 17 (6-26); Blood Urea Nitrogen 15 mg/dL (8-23); Calcium 7.1 mg/dL (8.6-10.3); Carbon Dioxide 21 mEq/L (23-29); Chloride 107 mEq/L (98-107); Glucose 188 mg/dL (70-105); Osmolality,Calculated 286 (280-300); Potassium 3.5 mEq/L (3.5-5.1); Sodium 135 mEq/L (136-145); eGFR For African Americans > 60 (> 60); eGFR For Non-African Americans > 60 (> 60)
[2021-01-01] MEDS ORDERED: Methyl Salicylate/Menthol 85 APPL/85 GM TUBE TP PRN (10:44)
[2021-01-01] MEDS: Hydrocortisone 10 MG TABLET PO SCH ×2 (11:53→17:03)
[2021-01-01] MEDS ORDERED: Azithromycin 500 MG in 0.9 % Sodium Chloride 250 ML IVPB SCH (18:00)
[2021-01-02] MEDS: Piperacillin/Tazobactam 3.375 GM in 0.9 % Sodium Chloride Mini Bag 100 ML IVPB SCH (03:58)
[2021-01-02] MEDS: *HR* OxyCODONE/APAP 5/325 TABLET PO PRN (04:07)
[2021-01-02] MEDS: *HR* Heparin 5,000 UNIT/ML VIAL SQ SCH (06:38)
[2021-01-02] MEDS: Insulin LISPRO 300 UNITS/3 ML VIAL SUBQ SCH ×2 (07:46→11:35)
[2021-01-02] MEDS: Loratadine 10 MG TABLET PO SCH (07:57)
[2021-01-02] MEDS: Aspirin 81 MG TAB.CHEW PO SCH (07:57)
[2021-01-02] MEDS: Cholecalciferol (D-3) 1,000 UNIT (25MCG) TABLET PO SCH (07:59)
[2021-01-02] MEDS ORDERED: Hydrocortisone 10 MG TABLET PO SCH (08:00)
[2021-01-02] MEDS: polyethylene glycoL 3350 17 GM POWD.PACK PO SCH (08:01)
[2021-01-02 10:48] VITALS: BP 119/63
[2021-01-02] MEDS ORDERED: Piperacillin/Tazobactam 3.375 GM in 0.9 % Sodium Chloride Mini Bag 100 ML IVPB SCH (16:00)
[2021-01-03] MEDS ORDERED: Hydrocortisone 10 MG TABLET PO SCH (08:00)
== END 2021-01-02 12:55 | disposition home health service (06) | DRG 871 ==
LOC: EMEROOARM 11:12 → ICNU 18:05 → SUATTDRO 18:05 → ICNU 18:31 → 2NENU 01-01 01:04
PROVIDERS: ADMIT Pediatrics; ATTEND Internal Medicine

== ENCOUNTER 2021-03-25 18:00 | Inpatient (IN) ==
[2021-03-25 19:54] LABS: Basophils # 0.1 K/mcL (0.0-0.2); Basophils % 0.5 %; Eosinophils % 0.3 %; Hematocrit 40.5 % (37.5-50.1); Hemoglobin 13.5 g/dL (12.9-16.9); Immature Granulocytes % 0.8 % (0-4); Lymphocytes # 1.9 K/mcL (0.6-4.6); Mean Corpuscular HGB Conc 33.3 g/dL (31.6-35.5); Mean Corpuscular Hemoglobin 31.7 pg (28.0-33.3); Mean Corpuscular Volume 95.1 fL (83.0-100.0); Mean Platelet Volume 10.2 fL (9.4-12.4); Monocytes # 1.1 K/mcL (0.0-1.3); Monocytes % 10.9 %; Neutrophils # 6.9 K/mcL (1.6-8.9); Platelet Count 258 K/mcL (140-400); Red Blood Count 4.26 M/mcL (4.19-5.50); Red Cell Distribution Width 14.9 % (11.5-14.5); Segmented Neutrophils % 68.5 %; White Blood Count 10.1 K/mcL (4.3-11.1)
[2021-03-25] MEDS ORDERED: Insulin Human Regular 10 UNIT in 0.9 % Sodium Chloride 10 ML IV ONE (20:25)
[2021-03-25] MEDS ORDERED: *HR* Dextrose 50 % in Water (Syg) 50 ML SYRINGE IVP ONE (20:25)
[2021-03-25] MEDS ORDERED: Furosemide 20 MG/2 ML VIAL IVP ONE (20:25)
[2021-03-25 20:28] LABS: BUN/Creatinine Ratio 46 (6-26); Blood Urea Nitrogen 64 mg/dL (8-23); Calcium 9.4 mg/dL (8.6-10.3); Carbon Dioxide 21 mEq/L (23-29); Chloride 94 mEq/L (98-107); Glucose 103 mg/dL (70-105); Magnesium 1.9 mg/dL (1.6-2.6); Osmolality,Calculated 275 (280-300); Potassium 7.1 mEq/L (3.5-5.1); Sodium 123 mEq/L (136-145); eGFR For African Americans > 60 (> 60); eGFR For Non-African Americans 51 (> 60)
[2021-03-25] MEDS ORDERED: Calcium Gluconate 1,000 MG/10 ML VIAL IVP ONE (20:33)
[2021-03-25] MEDS ORDERED: 0.9 % Sodium Chloride 1,000 ML IV ONE (20:34)
[2021-03-25] MEDS ORDERED: Calcium Gluconate 1gm/50mL BAG IVPB ONE (21:00)
[2021-03-25] MEDS ORDERED: SODIUM ZIRCONIUM CYCLOSILICATE 5 GM POWD.PACK PO ONE (21:37)
[2021-03-25] MEDS ORDERED: Naloxone 0.4 MG/ML INJ IVP PRN (22:28)
[2021-03-25] MEDS ORDERED: Ondansetron 4 MG/2 ML VIAL IVP PRN (22:28)
[2021-03-25] MEDS ORDERED: Acetaminophen 325 MG TABLET PO PRN (22:28)
[2021-03-25] MEDS ORDERED: Ipratropium/Albuterol Neb 3 ML IH PRN (22:42)
[2021-03-25] MEDS: 0.9 % Sodium Chloride 1,000 ML IVC SCH (23:09)
[2021-03-26] MEDS ORDERED: *HR* OxyCODONE/APAP 5/325 TABLET PO PRN (00:41)
[2021-03-26] MEDS ORDERED: *HR* LORazepam 0.5 MG TABLET PO PRN (00:41)
[2021-03-26 01:11] LABS: Alanine Aminotransferase 28 Units/L (7-52); Albumin 4.4 g/dL (3.5-5.7); Albumin/Globulin Ratio 1.4 (1.1-2.2); Alkaline Phosphatase 76 Units/L (34-104); Aspartate Amino Transferase 16 Units/L (13-39); BUN/Creatinine Ratio 48 (6-26); Bilirubin,Total 0.6 mg/dL (0.3-1.0); Blood Urea Nitrogen 60 mg/dL (8-23); Calcium 9.2 mg/dL (8.6-10.3); Carbon Dioxide 18 mEq/L (23-29); Chloride 97 mEq/L (98-107); Globulin 3.1 g/dL (2.4-3.5); Glucose 96 mg/dL (70-105); Osmolality,Calculated 275 (280-300); Potassium 6.2 mEq/L (3.5-5.1); Sodium 124 mEq/L (136-145); Total Protein 7.5 g/dL (6.4-8.9); eGFR For African Americans > 60 (> 60); eGFR For Non-African Americans 57 (> 60)
[2021-03-26 01:15] LABS: Basophils % 0.6 %
[2021-03-26 01:17] LABS: Basophils # 0.1 K/mcL (0.0-0.2); Eosinophils # 0.1 K/mcL (0.0-0.6); Eosinophils % 0.4 %; Hematocrit 38.1 % (37.5-50.1); Hemoglobin 12.9 g/dL (12.9-16.9); Immature Granulocytes % 0.8 % (0-4); Immature Platelets 5.3 % (1.1-6.1); Lymphocytes # 1.9 K/mcL (0.6-4.6); Lymphocytes % 13.8 %; Mean Corpuscular HGB Conc 33.9 g/dL (31.6-35.5); Mean Corpuscular Hemoglobin 31.2 pg (28.0-33.3); Mean Corpuscular Volume 92.3 fL (83.0-100.0); Mean Platelet Volume 10.9 fL (9.4-12.4); Monocytes # 1.8 K/mcL (0.0-1.3); Monocytes % 12.8 %; Platelet Count 212 K/mcL (140-400); Red Blood Count 4.13 M/mcL (4.19-5.50); Red Cell Distribution Width 14.6 % (11.5-14.5); Segmented Neutrophils % 71.6 %; White Blood Count 13.9 K/mcL (4.3-11.1)
[2021-03-26] MEDS ORDERED: Insulin Human Regular 10 UNIT in 0.9 % Sodium Chloride 10 ML IV ONE (03:18)
[2021-03-26] MEDS ORDERED: Calcium Gluconate 1gm/50mL 1 GM/50 ML BAG IVPB ONE (03:19)
[2021-03-26] MEDS ORDERED: *HR* Dextrose 50 % in Water (Syg) 50 ML SYRINGE IVP ONE (04:30)
[2021-03-26] MEDS: polyethylene glycoL 3350 17 GM POWD.PACK PO SCH (08:06)
[2021-03-26] MEDS: Loratadine 10 MG TABLET PO SCH (08:09)
[2021-03-26] MEDS: Cholecalciferol (D-3) 1,000 UNIT (25MCG) TABLET PO SCH (08:09)
[2021-03-26 08:11] LABS: BUN/Creatinine Ratio 43 (6-26); Blood Urea Nitrogen 57 mg/dL (8-23); Calcium 9.5 mg/dL (8.6-10.3); Carbon Dioxide 11 mEq/L (23-29); Chloride 101 mEq/L (98-107); Glucose 146 mg/dL (70-105); Osmolality,Calculated 278 (280-300); Potassium 6.9 mEq/L (3.5-5.1); Sodium 125 mEq/L (136-145); eGFR For African Americans > 60 (> 60); eGFR For Non-African Americans 53 (> 60)
[2021-03-26] MEDS ORDERED: Hydrocortisone Sodium Succ 100 MG/2 ML VIAL IVP STA (08:57)
[2021-03-26] MEDS ORDERED: Hydrocortisone 10 MG TABLET PO SCH ×2 (09:00→18:00)
[2021-03-26] MEDS ORDERED: *HR* Enoxaparin 30 MG/0.3 ML SYRINGE SQ SCH (09:00)
[2021-03-26 10:05] LABS: Hematocrit 38.7 % (37.5-50.1); Hemoglobin 12.5 g/dL (12.9-16.9); Mean Corpuscular HGB Conc 32.3 g/dL (31.6-35.5); Mean Platelet Volume 10.2 fL (9.4-12.4); Platelet Count 195 K/mcL (140-400); Red Blood Count 4.03 M/mcL (4.19-5.50); Red Cell Distribution Width 14.7 % (11.5-14.5); White Blood Count 8.4 K/mcL (4.3-11.1)
[2021-03-26 10:36] LABS: Albumin 4.3 g/dL (3.5-5.7); BUN/Creatinine Ratio 38 (6-26); Blood Urea Nitrogen 50 mg/dL (8-23); Calcium 9.6 mg/dL (8.6-10.3); Carbon Dioxide 20 mEq/L (23-29); Chloride 97 mEq/L (98-107); Glucose 97 mg/dL (70-105); Lactate Dehydrogenase 110 Units/L (140-271); Osmolality,Calculated 277 (280-300); Phosphorous 3.4 mg/dL (2.7-4.5); Potassium 5.8 mEq/L (3.5-5.1); Sodium 127 mEq/L (136-145); Uric Acid 5.8 mg/dL (2.3-7.6); eGFR For African Americans > 60 (> 60); eGFR For Non-African Americans 54 (> 60)
[2021-03-26 10:41] LABS: Thyroid Stimulating Hormone 1.984 mcIU/mL (0.340-5.600)
[2021-03-26] MEDS: 0.9 % Sodium Chloride 1,000 ML IVC SCH (11:33)
[2021-03-26] MEDS: SODIUM ZIRCONIUM CYCLOSILICATE 5 GM POWD.PACK PO SCH (11:34)
[2021-03-26] MEDS: Hydrocortisone Sodium Succ 100 MG/2 ML VIAL IVP SCH ×2 (18:08→23:29)
[2021-03-26 23:05] LABS: BUN/Creatinine Ratio 41 (6-26); Blood Urea Nitrogen 40 mg/dL (8-23); Calcium 8.6 mg/dL (8.6-10.3); Carbon Dioxide 18 mEq/L (23-29); Chloride 96 mEq/L (98-107); Glucose 134 mg/dL (70-105); Osmolality,Calculated 268 (280-300); Potassium 5.3 mEq/L (3.5-5.1); Sodium 123 mEq/L (136-145); eGFR For African Americans > 60 (> 60); eGFR For Non-African Americans > 60 (> 60)
[2021-03-27 06:59] LABS: BUN/Creatinine Ratio 31 (6-26); Blood Urea Nitrogen 30 mg/dL (8-23); Calcium 8.9 mg/dL (8.6-10.3); Carbon Dioxide 22 mEq/L (23-29); Chloride 99 mEq/L (98-107); Glucose 108 mg/dL (70-105); Osmolality,Calculated 271 (280-300); Potassium 5.3 mEq/L (3.5-5.1); Sodium 127 mEq/L (136-145); eGFR For African Americans > 60 (> 60); eGFR For Non-African Americans > 60 (> 60)
[2021-03-27] MEDS: SODIUM ZIRCONIUM CYCLOSILICATE 5 GM POWD.PACK PO SCH (08:45)
[2021-03-27] MEDS: Hydrocortisone Sodium Succ 100 MG/2 ML VIAL IVP SCH ×2 (08:48→16:40)
[2021-03-27] MEDS: Loratadine 10 MG TABLET PO SCH (08:48)
[2021-03-27] MEDS: Cholecalciferol (D-3) 1,000 UNIT (25MCG) TABLET PO SCH (08:48)
[2021-03-27] MEDS: polyethylene glycoL 3350 17 GM POWD.PACK PO SCH (08:49)
[2021-03-27] MEDS ORDERED: *HR* Enoxaparin 40 MG/0.4 ML SYRINGE SQ ONE (09:00)
[2021-03-27] MEDS: Tobramycin Opth SOLN 5 ML BOTTLE LEFT EYE SCH ×2 (13:00→16:03)
[2021-03-27 16:21] VITALS: BP 102/68; PULSE 99; TEMP 98.5; O2SAT 98
[2021-03-27 16:21] LABS: BUN/Creatinine Ratio 32 (6-26); Blood Urea Nitrogen 29 mg/dL (8-23); Calcium 8.7 mg/dL (8.6-10.3); Carbon Dioxide 21 mEq/L (23-29); Chloride 95 mEq/L (98-107); Creatine Kinase 27 Units/L (30-223); Glucose 189 mg/dL (70-105); Osmolality,Calculated 267 (280-300); Potassium 4.3 mEq/L (3.5-5.1); Sodium 123 mEq/L (136-145); eGFR For African Americans > 60 (> 60); eGFR For Non-African Americans > 60 (> 60)
[2021-03-28] MEDS ORDERED: *HR* Enoxaparin 40 MG/0.4 ML SYRINGE SQ SCH (06:00)
== END 2021-03-27 17:39 | disposition home or self-care (01) | DRG 641 ==
LOC: 2ANU 18:00 → EMEROOARM 18:00 → SUATTDRO 22:42 → 2ANU 22:45
PROVIDERS: ADMIT Student in an Organized Health Care Education/Training Program; ATTEND Student in an Organized Health Care Education/Training Program

== ENCOUNTER 2021-04-14 18:24 | Inpatient (IN) ==
[2021-04-14] MEDS ORDERED: Morphine Sulfate 2 MG/ML SYRINGE IVP ONE (18:38)
[2021-04-14] MEDS ORDERED: 0.9 % Sodium Chloride 1,000 ML IVC ONE ×2 (19:00→20:34)
[2021-04-14 19:15] LABS: Basophils % 0.2 %; Hematocrit 39.9 % (37.5-50.1); Hemoglobin 13.6 g/dL (12.9-16.9); Immature Granulocytes % 0.5 % (0-4); Lymphocytes # 0.9 K/mcL (0.6-4.6); Lymphocytes % 4.7 %; Mean Corpuscular HGB Conc 34.1 g/dL (31.6-35.5); Mean Corpuscular Hemoglobin 31.3 pg (28.0-33.3); Mean Corpuscular Volume 91.7 fL (83.0-100.0); Mean Platelet Volume 9.8 fL (9.4-12.4); Monocytes # 1.5 K/mcL (0.0-1.3); Monocytes % 7.7 %; Neutrophils # 16.9 K/mcL (1.6-8.9); Platelet Count 249 K/mcL (140-400); Red Blood Count 4.35 M/mcL (4.19-5.50); Red Cell Distribution Width 14.5 % (11.5-14.5); Segmented Neutrophils % 86.9 %; White Blood Count 19.4 K/mcL (4.3-11.1)
[2021-04-14] MEDS ORDERED: Isovue-370 500 ML BOTTLE IVP ONE (19:21)
[2021-04-14 19:35] LABS: Alanine Aminotransferase 25 Units/L (7-52); Albumin 4.4 g/dL (3.5-5.7); Albumin/Globulin Ratio 1.3 (1.1-2.2); Alkaline Phosphatase 85 Units/L (34-104); Aspartate Amino Transferase 16 Units/L (13-39); BUN/Creatinine Ratio 38 (6-26); Bilirubin,Direct 0.1 mg/dL (0.0-0.2); Bilirubin,Indirect 0.4 mg/dL (0.0-1.0); Bilirubin,Total 0.5 mg/dL (0.3-1.0); Blood Urea Nitrogen 43 mg/dL (8-23); Calcium 10.6 mg/dL (8.6-10.3); Carbon Dioxide 20 mEq/L (23-29); Chloride 93 mEq/L (98-107); Globulin 3.4 g/dL (2.4-3.5); Glucose 110 mg/dL (70-105); Osmolality,Calculated 267 (280-300); Potassium 5.9 mEq/L (3.5-5.1); Sodium 123 mEq/L (136-145); Total Protein 7.8 g/dL (6.4-8.9); Troponin I 0.03 ng/mL (< 0.04); eGFR For African Americans > 60 (> 60); eGFR For Non-African Americans > 60 (> 60)
[2021-04-14] MEDS ORDERED: *HR* FentaNYL (PF) 100 MCG/2 ML VIAL IVP ONE (19:38)
[2021-04-14] MEDS ORDERED: Piperacillin/Tazobactam 3.375 GM in Water for inj. (sterile) 20 ML IVP ONE (19:39)
[2021-04-14 19:41] LABS: Magnesium 1.6 mg/dL (1.6-2.6)
[2021-04-14] MEDS ORDERED: Vancomycin 1,250 MG/262.5 ML IV.SOLN IVPB ONE (20:00)
[2021-04-14 20:37] LABS: Influenza A PCR Negative (Negative); Influenza B PCR Negative (Negative); Resp. Syncytial Virus PCR Negative (Negative)
[2021-04-14 21:02] LABS: SARS-CoV-2 by PCR (In House) Negative (Negative)
[2021-04-14] MEDS ORDERED: Hydrocortisone Sodium Succ 100 MG/2 ML VIAL IVP ONE (21:09)
[2021-04-14] MEDS ORDERED: D5% in Lactated Ringers 1,000 ML IVC ONE (23:02)
[2021-04-15 01:33] LABS: Bilirubin,Urine Negative (Negative); Blood,Urine Negative (Negative); Clarity,Urine Clear (Clear); Color,Urine Light-Yellow (Yellow); Glucose,Urine (UA) Normal (Normal); Ketones,Urine Negative (Negative); Leukocyte Esterase,Urine Negative (Negative); Nitrite,Urine Negative (Negative); Protein,Urine Negative (Neg-Trace); Specific Gravity,Urine > 1.030 (1.010-1.025); Urobilinogen,Urine Normal (Normal)
[2021-04-15 01:45] LABS: Potassium,Urine 32.9 mEq/L; Sodium, Urine 91.7 mEq/L
[2021-04-15] MEDS ORDERED: *HR* FentaNYL (PF) 100 MCG/2 ML VIAL IVP ONE (01:47)
[2021-04-15 01:54] LABS: BUN/Creatinine Ratio 30 (6-26); Blood Urea Nitrogen 34 mg/dL (8-23); Calcium 8.7 mg/dL (8.6-10.3); Carbon Dioxide 17 mEq/L (23-29); Chloride 100 mEq/L (98-107); Glucose 126 mg/dL (70-105); Osmolality,Calculated 267 (280-300); Potassium 6.2 mEq/L (3.5-5.1); Sodium 124 mEq/L (136-145); eGFR For African Americans > 60 (> 60); eGFR For Non-African Americans > 60 (> 60)
[2021-04-15] MEDS: D5% in Lactated Ringers 1,000 ML IVC SCH ×5 (02:43→21:17)
[2021-04-15] MEDS ORDERED: *HR* Dextrose 50 % in Water (Syg) 50 ML SYRINGE IVP ONE (03:24)
[2021-04-15] MEDS ORDERED: Calcium Gluconate 1gm/50mL 1 GM/50 ML BAG IVPB ONE (03:24)
[2021-04-15] MEDS ORDERED: Insulin Human Regular 5 UNIT in 0.9 % Sodium Chloride 10 ML IV ONE (03:24)
[2021-04-15] MEDS: Hydrocortisone Sodium Succ 100 MG/2 ML VIAL IVP SCH ×4 (04:27→21:17)
[2021-04-15] MEDS ORDERED: Piperacillin/Tazobactam 3.375 GM in Water for inj. (sterile) 20 ML IVP ONE (05:30)
[2021-04-15] MEDS ORDERED: *HR* LORazepam 0.5 MG TABLET PO ONE (05:51)
[2021-04-15] MEDS ORDERED: 0.9 % Sodium Chloride 500 ML IVC ONE (06:45)
[2021-04-15] MEDS ORDERED: SODIUM ZIRCONIUM CYCLOSILICATE 5 GM POWD.PACK PO ONE (07:00)
[2021-04-15] MEDS ORDERED: Acetaminophen 325 MG TABLET PO PRN (07:45)
[2021-04-15] MEDS ORDERED: Albuterol 2.5 MG/3 ML NEBULIZER IH PRN ×2 (07:45→19:05)
[2021-04-15] MEDS ORDERED: Naloxone 0.4 MG/ML INJ IVP PRN ×2 (07:45→19:05)
[2021-04-15] MEDS ORDERED: Vancomycin (wt based) 1,000 MG VIAL IVPB SCH (08:00)
[2021-04-15] MEDS ORDERED: Vancomycin 1,250 MG/262.5 ML IV.SOLN IVPB ONE (08:00)
[2021-04-15] MEDS ORDERED: Azithromycin 500 MG in 0.9 % Sodium Chloride 250 ML IVPB SCH (08:00)
[2021-04-15 08:41] LABS: Alanine Aminotransferase 16 Units/L (7-52); Albumin 3.5 g/dL (3.5-5.7); Albumin/Globulin Ratio 1.6 (1.1-2.2); Alkaline Phosphatase 58 Units/L (34-104); Aspartate Amino Transferase 13 Units/L (13-39); BUN/Creatinine Ratio 28 (6-26); Bilirubin,Total 0.7 mg/dL (0.3-1.0); Blood Urea Nitrogen 29 mg/dL (8-23); Calcium 9.1 mg/dL (8.6-10.3); Carbon Dioxide 20 mEq/L (23-29); Chloride 100 mEq/L (98-107); Globulin 2.2 g/dL (2.4-3.5); Glucose 163 mg/dL (70-105); Osmolality,Calculated 273 (280-300); Potassium 5.1 mEq/L (3.5-5.1); Sodium 127 mEq/L (136-145); Total Protein 5.7 g/dL (6.4-8.9); Troponin I < 0.03 ng/mL (< 0.04); eGFR For African Americans > 60 (> 60); eGFR For Non-African Americans > 60 (> 60)
[2021-04-15] MEDS: Albumin Human 5% 12.5 GM/250 ML IV.SOLN IVC SCH ×4 (11:29→17:46)
[2021-04-15] MEDS: Ipratropium/Albuterol Neb 3 ML IH SCH ×4 (12:32→20:59)
[2021-04-15] MEDS: *HR* Heparin 5,000 UNIT/ML VIAL SQ SCH ×3 (14:00→23:40)
[2021-04-15] MEDS: Piperacillin/Tazobactam 3.375 GM in 0.9 % Sodium Chloride Mini Bag 100 ML IVPB SCH ×3 (16:01→23:40)
[2021-04-15] MEDS: Artificial Tears SOLN 15 ML BOTTLE BOTH EYES SCH (21:12)
[2021-04-15] MEDS: *HR* OxyCODONE/APAP 5/325 TABLET GTUBE PRN (21:52)
[2021-04-15] MEDS: *HR* LORazepam 0.5 MG TABLET GTUBE PRN (21:52)
[2021-04-16] MEDS: Ipratropium/Albuterol Neb 3 ML IH SCH ×7 (00:07→23:29)
[2021-04-16 03:18] LABS: Basophils % 0.1 %; Hematocrit 28.3 % (37.5-50.1); Immature Granulocytes % 0.4 % (0-4); Lymphocytes # 0.5 K/mcL (0.6-4.6); Lymphocytes % 6.5 %; Mean Corpuscular HGB Conc 32.2 g/dL (31.6-35.5); Mean Corpuscular Hemoglobin 31.3 pg (28.0-33.3); Mean Corpuscular Volume 97.3 fL (83.0-100.0); Monocytes # 0.4 K/mcL (0.0-1.3); Monocytes % 5.2 %; Neutrophils # 6.2 K/mcL (1.6-8.9); Platelet Count 157 K/mcL (140-400); Red Blood Count 2.91 M/mcL (4.19-5.50); Red Cell Distribution Width 14.6 % (11.5-14.5); Segmented Neutrophils % 87.8 %
[2021-04-16 03:27] LABS: Hemoglobin 9.1 g/dL (12.9-16.9); White Blood Count 7.1 K/mcL (4.3-11.1)
[2021-04-16 03:34] LABS: Alanine Aminotransferase 10 Units/L (7-52); Albumin 3.7 g/dL (3.5-5.7); Albumin/Globulin Ratio 2.3 (1.1-2.2); Alkaline Phosphatase 40 Units/L (34-104); Aspartate Amino Transferase 10 Units/L (13-39); BUN/Creatinine Ratio 18 (6-26); Bilirubin,Direct 0.1 mg/dL (0.0-0.2); Bilirubin,Indirect 0.2 mg/dL (0.0-1.0); Bilirubin,Total 0.3 mg/dL (0.3-1.0); Blood Urea Nitrogen 16 mg/dL (8-23); Calcium 8.4 mg/dL (8.6-10.3); Carbon Dioxide 21 mEq/L (23-29); Chloride 103 mEq/L (98-107); Globulin 1.6 g/dL (2.4-3.5); Glucose 192 mg/dL (70-105); Osmolality,Calculated 278 (280-300); Phosphorous 2.7 mg/dL (2.7-4.5); Potassium 4.1 mEq/L (3.5-5.1); Sodium 131 mEq/L (136-145); Total Protein 5.3 g/dL (6.4-8.9); eGFR For African Americans > 60 (> 60); eGFR For Non-African Americans > 60 (> 60)
[2021-04-16] MEDS: Hydrocortisone Sodium Succ 100 MG/2 ML VIAL IVP SCH ×4 (03:59→20:19)
[2021-04-16] MEDS: D5% in Lactated Ringers 1,000 ML IVC SCH ×2 (07:50→16:33)
[2021-04-16] MEDS ORDERED: Albuterol 2.5 MG/3 ML NEBULIZER IH PRN (08:43)
[2021-04-16] MEDS ORDERED: Vancomycin 1,250 MG/262.5 ML IV.SOLN IVPB SCH ×2 (09:00)
[2021-04-16] MEDS: Azithromycin 500 MG in 0.9 % Sodium Chloride 250 ML IVPB SCH (09:27)
[2021-04-16] MEDS: *HR* Heparin 5,000 UNIT/ML VIAL SQ SCH ×3 (09:27→23:33)
[2021-04-16] MEDS: *HR* LORazepam 0.5 MG TABLET GTUBE PRN (09:48)
[2021-04-16] MEDS: Piperacillin/Tazobactam 3.375 GM in 0.9 % Sodium Chloride Mini Bag 100 ML IVPB SCH ×3 (10:45→23:32)
[2021-04-16] MEDS ORDERED: (Diclofenac Sodium [Arthritis Pain] 100 GM Gel..Gram. TP PRN (11:08)
[2021-04-16] MEDS ORDERED: polyethylene glycoL 3350 17 GM POWD.PACK PO PRN (11:08)
[2021-04-16] MEDS: Cholecalciferol (D-3) 1,000 UNIT (25MCG) TABLET PO SCH (11:51)
[2021-04-16] MEDS ORDERED: Ondansetron ODT 4 MG TAB.RAPDIS PO PRN (12:24)
[2021-04-16] MEDS: Artificial Tears SOLN 15 ML BOTTLE BOTH EYES SCH ×4 (16:34→20:20)
[2021-04-16] MEDS: *HR* OxyCODONE/APAP 5/325 TABLET GTUBE PRN (18:34)
[2021-04-17 01:18] LABS: Basophils % 0.2 %; Hematocrit 25.1 % (37.5-50.1); Hemoglobin 8.2 g/dL (12.9-16.9); Immature Granulocytes % 0.6 % (0-4); Lymphocytes # 0.4 K/mcL (0.6-4.6); Mean Corpuscular HGB Conc 32.7 g/dL (31.6-35.5); Mean Corpuscular Hemoglobin 31.2 pg (28.0-33.3); Mean Corpuscular Volume 95.4 fL (83.0-100.0); Mean Platelet Volume 9.8 fL (9.4-12.4); Monocytes # 0.4 K/mcL (0.0-1.3); Monocytes % 5.7 %; Neutrophils # 5.7 K/mcL (1.6-8.9); Platelet Count 171 K/mcL (140-400); Red Blood Count 2.63 M/mcL (4.19-5.50); Red Cell Distribution Width 14.8 % (11.5-14.5); Segmented Neutrophils % 87.5 %; White Blood Count 6.5 K/mcL (4.3-11.1)
[2021-04-17 01:38] LABS: Alanine Aminotransferase 11 Units/L (7-52); Albumin 3.2 g/dL (3.5-5.7); Albumin/Globulin Ratio 1.7 (1.1-2.2); Alkaline Phosphatase 47 Units/L (34-104); Aspartate Amino Transferase 11 Units/L (13-39); BUN/Creatinine Ratio 19 (6-26); Bilirubin,Indirect 0.2 mg/dL (0.0-1.0); Bilirubin,Total 0.2 mg/dL (0.3-1.0); Blood Urea Nitrogen 15 mg/dL (8-23); Calcium 8.2 mg/dL (8.6-10.3); Carbon Dioxide 20 mEq/L (23-29); Chloride 104 mEq/L (98-107); Globulin 1.9 g/dL (2.4-3.5); Glucose 196 mg/dL (70-105); Osmolality,Calculated 278 (280-300); Potassium 3.8 mEq/L (3.5-5.1); Sodium 131 mEq/L (136-145); Total Protein 5.1 g/dL (6.4-8.9); eGFR For African Americans > 60 (> 60); eGFR For Non-African Americans > 60 (> 60)
[2021-04-17] MEDS: D5% in Lactated Ringers 1,000 ML IVC SCH (02:47)
[2021-04-17] MEDS: Hydrocortisone Sodium Succ 100 MG/2 ML VIAL IVP SCH ×4 (03:28→20:30)
[2021-04-17] MEDS: Ipratropium/Albuterol Neb 3 ML IH SCH ×6 (03:31→23:39)
[2021-04-17] MEDS: Artificial Tears SOLN 15 ML BOTTLE BOTH EYES SCH ×6 (03:51→20:13)
[2021-04-17] MEDS: *HR* OxyCODONE/APAP 5/325 TABLET GTUBE PRN (06:14)
[2021-04-17] MEDS: Cholecalciferol (D-3) 1,000 UNIT (25MCG) TABLET PO SCH (08:13)
[2021-04-17] MEDS: *HR* Heparin 5,000 UNIT/ML VIAL SQ SCH ×2 (08:15→17:28)
[2021-04-17] MEDS: Loratadine 10 MG TABLET PO SCH (08:16)
[2021-04-17] MEDS: Azithromycin 500 MG in 0.9 % Sodium Chloride 250 ML IVPB SCH (08:17)
[2021-04-17] MEDS: Piperacillin/Tazobactam 3.375 GM in 0.9 % Sodium Chloride Mini Bag 100 ML IVPB SCH ×2 (09:44→16:31)
[2021-04-17] MEDS: Lacri-Lube 3.5 GM TUBE RIGHT EYE SCH ×2 (17:28→20:10)
[2021-04-17] MEDS: Fluticasone Propionate Nasal 50 MCG/SPRAY BOTTLE NS SCH (17:29)
[2021-04-18] MEDS: Artificial Tears SOLN 15 ML BOTTLE BOTH EYES SCH ×4 (00:14→13:05)
[2021-04-18] MEDS: Lacri-Lube 3.5 GM TUBE RIGHT EYE SCH ×3 (00:14→09:29)
[2021-04-18] MEDS: *HR* Heparin 5,000 UNIT/ML VIAL SQ SCH ×2 (00:14→08:30)
[2021-04-18] MEDS: Piperacillin/Tazobactam 3.375 GM in 0.9 % Sodium Chloride Mini Bag 100 ML IVPB SCH ×2 (00:15→08:30)
[2021-04-18 03:03] LABS: Basophils % 0.1 %; Hematocrit 27.7 % (37.5-50.1); Hemoglobin 8.9 g/dL (12.9-16.9); Immature Granulocytes % 1.3 % (0-4); Lymphocytes # 0.6 K/mcL (0.6-4.6); Lymphocytes % 8.5 %; Mean Corpuscular HGB Conc 32.1 g/dL (31.6-35.5); Mean Corpuscular Hemoglobin 31.3 pg (28.0-33.3); Mean Corpuscular Volume 97.5 fL (83.0-100.0); Mean Platelet Volume 10.1 fL (9.4-12.4); Monocytes # 0.5 K/mcL (0.0-1.3); Monocytes % 6.7 %; Neutrophils # 5.6 K/mcL (1.6-8.9); Platelet Count 180 K/mcL (140-400); Red Blood Count 2.84 M/mcL (4.19-5.50); Red Cell Distribution Width 14.8 % (11.5-14.5); Segmented Neutrophils % 83.4 %; White Blood Count 6.7 K/mcL (4.3-11.1)
[2021-04-18 03:24] LABS: Alanine Aminotransferase 12 Units/L (7-52); Albumin 3.3 g/dL (3.5-5.7); Albumin/Globulin Ratio 1.7 (1.1-2.2); Alkaline Phosphatase 45 Units/L (34-104); Aspartate Amino Transferase 14 Units/L (13-39); BUN/Creatinine Ratio 21 (6-26); Bilirubin,Direct 0.1 mg/dL (0.0-0.2); Bilirubin,Indirect 0.2 mg/dL (0.0-1.0); Bilirubin,Total 0.3 mg/dL (0.3-1.0); Blood Urea Nitrogen 19 mg/dL (8-23); Calcium 8.5 mg/dL (8.6-10.3); Carbon Dioxide 21 mEq/L (23-29); Chloride 103 mEq/L (98-107); Globulin 1.9 g/dL (2.4-3.5); Glucose 149 mg/dL (70-105); Osmolality,Calculated 281 (280-300); Sodium 133 mEq/L (136-145); Total Protein 5.2 g/dL (6.4-8.9); eGFR For African Americans > 60 (> 60); eGFR For Non-African Americans > 60 (> 60)
[2021-04-18] MEDS: Ipratropium/Albuterol Neb 3 ML IH SCH ×3 (03:28→11:04)
[2021-04-18] MEDS: Hydrocortisone Sodium Succ 100 MG/2 ML VIAL IVP SCH ×2 (03:37→08:31)
[2021-04-18] MEDS: Loratadine 10 MG TABLET PO SCH (08:29)
[2021-04-18] MEDS: Cholecalciferol (D-3) 1,000 UNIT (25MCG) TABLET PO SCH (08:29)
[2021-04-18] MEDS: Azithromycin 500 MG in 0.9 % Sodium Chloride 250 ML IVPB SCH (08:31)
[2021-04-18] MEDS: Fluticasone Propionate Nasal 50 MCG/SPRAY BOTTLE NS SCH (08:32)
[2021-04-18 11:19] VITALS: BP 122/51; PULSE 88; TEMP 98.7; O2SAT 98
== END 2021-04-18 14:35 | disposition home health service (06) | DRG 871 ==
LOC: EMEROOARM 18:24 → 2NNU 04-15 17:04
PROVIDERS: ADMIT Pediatrics; ATTEND Pediatrics